=== PATIENT | male | born 1980 | race Caucasian/White ===

== ENCOUNTER 2020-09-17 08:02 | Observation (INO) ==
[~2020-09-17 08:02] MED LIST: Famotidine 20 MG/2 ML VIAL IVP ONE; Pregabalin 75 MG CAPSULE PO ONE
[2020-09-17] MEDS ORDERED: Clindamycin 900 MG/50 ML 900 MG/50 ML IV.SOLN IVPB ONE (08:26)
[2020-09-17] MEDS ORDERED: Ringers Solution, Lactated 1,000 ML IVC SCH ×2 (08:30→13:20)
[2020-09-17] MEDS ORDERED: *HR* Propofol 200 MG/20 ML VIAL IVP ONE (08:45)
[2020-09-17] MEDS ORDERED: *HR* Midazolam HCl 2 MG/2 ML VIAL ONE (08:50)
[2020-09-17] MEDS ORDERED: *HR* Rocuronium Bromide 50 MG/5 ML VIAL ONE (08:51)
[2020-09-17] MEDS ORDERED: Lidocaine -MPF 4% 5 ML AMPUL ONE (08:51)
[2020-09-17] MEDS ORDERED: Lidocaine -MPF 2% 2 ML VIAL ONE (08:51)
[2020-09-17] MEDS ORDERED: Ondansetron 4 MG/2 ML VIAL ONE (08:51)
[2020-09-17] MEDS ORDERED: *HR* Succinylcholine 200 MG/10 ML VIAL IVP ONE (09:00)
[2020-09-17] MEDS ORDERED: *HR* FentaNYL (PF) 100 MCG/2 ML VIAL ONE ×2 (09:01→11:06)
[2020-09-17] MEDS ORDERED: *HR* OxyCODONE Immed Rel 5 MG TABLET PO PRN (09:45)
[2020-09-17] MEDS ORDERED: *HR* HYDROmorphone (PF) 1 MG/ML SYRINGE IVP PRN (09:45)
[2020-09-17] MEDS ORDERED: Acetaminophen IV 1,000 MG/100 ML BAG IVPB ONE (09:45)
[2020-09-17] MEDS ORDERED: *HR* HYDROmorphone 2 MG TABLET PO PRN (09:45)
[2020-09-17] MEDS ORDERED: Bacitracin 50,000 UNIT, Polymyxin B Sulfate 500,000 UNIT, Sodium Chloride IRRigation 1,... IR ONE (09:45)
[2020-09-17] MEDS ORDERED: *HR* Labetalol 20 MG/4 ML SYRINGE IVP PRN (09:45)
[2020-09-17] MEDS ORDERED: EPHEDrine 50 MG/ML VIAL ONE (11:24)
[2020-09-17] MEDS ORDERED: Sugammadex Sodium 200 MG/2 ML VIAL IV ONE (11:54)
[2020-09-17] MEDS ORDERED: Ketorolac 30 MG/ML VIAL ONE (11:55)
[2020-09-17] MEDS ORDERED: Ondansetron 4 MG/2 ML VIAL IVP PRN (13:20)
[2020-09-17] MEDS ORDERED: Naloxone 0.4 MG/ML INJ IVP PRN (13:20)
[2020-09-17] MEDS ORDERED: Famotidine 20 MG TABLET PO PRN (13:20)
[2020-09-17] MEDS ORDERED: *HR* HYDROcodone/Acet 5/325 mg TABLET PO PRN (13:20)
[2020-09-17] MEDS ORDERED: cloNIDine HCL 0.1 MG TABLET PO PRN (13:20)
[2020-09-17] MEDS ORDERED: Acetaminophen 325 MG TABLET PO PRN (13:20)
[2020-09-17] MEDS: *HR* OxyCODONE Immed Rel 5 MG TABLET PO PRN ×2 (15:24→19:47)
[2020-09-17] MEDS: carvediloL 25 MG TABLET PO SCH (17:13)
[2020-09-17] MEDS: Clindamycin 900 MG/50 ML 900 MG/50 ML IV.SOLN IVPB SCH (17:14)
[2020-09-18] MEDS: Clindamycin 900 MG/50 ML 900 MG/50 ML IV.SOLN IVPB SCH (02:09)
[2020-09-18] MEDS: NIFEdipine XL (24 HR) 30 MG TAB.ER.24 PO SCH (07:15)
[2020-09-18] MEDS: Cholecalciferol (D-3) 1,000 UNIT (25MCG) TABLET PO SCH (07:16)
[2020-09-18] MEDS: carvediloL 25 MG TABLET PO SCH ×2 (07:16→18:42)
[2020-09-18] MEDS: *HR* OxyCODONE Immed Rel 5 MG TABLET PO PRN ×4 (07:16→22:15)
[2020-09-18] MEDS: Aspirin Enteric Coated 81 MG Tablet PO SCH (07:16)
[2020-09-18] MEDS: lisinopriL 20 MG TABLET PO SCH (07:16)
[2020-09-18] MEDS: Loratadine 10 MG TABLET PO SCH (07:17)
[2020-09-18] MEDS ORDERED: Celecoxib 200 MG CAPSULE PO SCH (09:00)
[2020-09-18 09:59] LABS: BUN/Creatinine Ratio 13 (6-26); Blood Urea Nitrogen 8 mg/dL (6-20); Carbon Dioxide 25 mEq/L (23-29); Chloride 106 mEq/L (98-107); Glucose 225 mg/dL (70-105); Osmolality,Calculated 293 (280-300); Potassium 3.7 mEq/L (3.5-5.1); Sodium 139 mEq/L (136-145); eGFR For African Americans > 60 (> 60); eGFR For Non-African Americans > 60 (> 60)
[2020-09-18 10:25] LABS: Basophils # 0.1 K/mcL (0.0-0.2); Basophils % 0.4 %; Eosinophils # 0.2 K/mcL (0.0-0.6); Eosinophils % 1.6 %; Hematocrit 37.4 % (37.5-50.1); Hemoglobin 11.9 g/dL (12.9-16.9); Immature Granulocytes % 0.2 % (0-4); Lymphocytes # 2.6 K/mcL (0.6-4.6); Lymphocytes % 19.5 %; Mean Corpuscular HGB Conc 31.8 g/dL (31.6-35.5); Mean Corpuscular Hemoglobin 27.5 pg (28.0-33.3); Mean Corpuscular Volume 86.4 fL (83.0-100.0); Monocytes # 0.8 K/mcL (0.0-1.3); Monocytes % 6.4 %; Neutrophils # 9.4 K/mcL (1.6-8.9); Platelet Count 320 K/mcL (140-400); Red Blood Count 4.33 M/mcL (4.19-5.50); Red Cell Distribution Width 13.4 % (11.5-14.5); Segmented Neutrophils % 71.9 %; White Blood Count 13.1 K/mcL (4.3-11.1)
[2020-09-18] MEDS ORDERED: D5% in Water 1,000 ML IVC PRN (12:37)
[2020-09-18] MEDS ORDERED: *HR* Dextrose 50 % in Water (Vial) 50 ML VIAL IVP PRN (12:37)
[2020-09-18] MEDS ORDERED: Dextrose Gel 15 GM/37.5 ML TUBE PO PRN ×2 (12:37)
[2020-09-18] MEDS ORDERED: diazePAM 2 MG TABLET PO PRN (12:40)
[2020-09-18] MEDS: Acetaminophen 325 MG TABLET PO SCH ×3 (15:55→23:41)
[2020-09-18] MEDS: Ketorolac 15 MG/ML VIAL IVP SCH ×2 (15:55→23:41)
[2020-09-18 18:34] LABS: Bacteria,Urine Few per hpf (None-Few); Bilirubin,Urine Negative (Negative); Blood,Urine Negative (Negative); Calcium Oxalate Crystals,Urine Present; Clarity,Urine Turbid (Clear); Color,Urine Yellow (Yellow); Glucose,Urine (UA) >=1000 mg/dL (Normal); Hyaline Casts,Urine Few per lpf (None Seen); Ketones,Urine Negative (Negative); Leukocyte Esterase,Urine Negative (Negative); Mucus,Urine Moderate per lpf (None-Few); Nitrite,Urine Negative (Negative); Protein,Urine 50 mg/dL (Neg-Trace); Specific Gravity,Urine > 1.030 (1.010-1.025); Squamous Epithelial Cell,Urine Few per hpf (None-Few)
[2020-09-18] MEDS: Insulin LISPRO 300 UNITS/3 ML VIAL SUBQ SCH (18:42)
[2020-09-19] MEDS: Acetaminophen 325 MG TABLET PO SCH ×2 (05:42→13:17)
[2020-09-19] MEDS: *HR* OxyCODONE Immed Rel 5 MG TABLET PO PRN (08:38)
[2020-09-19] MEDS: carvediloL 25 MG TABLET PO SCH (08:39)
[2020-09-19] MEDS: Cholecalciferol (D-3) 1,000 UNIT (25MCG) TABLET PO SCH (08:39)
[2020-09-19] MEDS: NIFEdipine XL (24 HR) 30 MG TAB.ER.24 PO SCH (08:39)
[2020-09-19] MEDS: lisinopriL 20 MG TABLET PO SCH (08:39)
[2020-09-19] MEDS: Aspirin Enteric Coated 81 MG Tablet PO SCH (08:39)
[2020-09-19] MEDS: Loratadine 10 MG TABLET PO SCH (08:39)
[2020-09-19] MEDS: Ketorolac 15 MG/ML VIAL IVP SCH (08:40)
[2020-09-19] MEDS: Insulin LISPRO 300 UNITS/3 ML VIAL SUBQ SCH (08:40)
[2020-09-19 15:25] VITALS: BP 120/78
== END 2020-09-19 17:56 | disposition home health service (06) ==
LOC: 3NENU 08:02 → SAMDAY 08:02 → 3NENU 13:18
PROVIDERS: ADMIT Orthopaedic Surgery Orthopaedic Surgery of the Spine; ATTEND Orthopaedic Surgery Orthopaedic Surgery of the Spine

== ENCOUNTER 2020-10-09 04:02 | Inpatient (IN) ==
[2020-10-09] MEDS ORDERED: Naloxone 0.4 MG/ML INJ IVP PRN (10:30)
[2020-10-09 11:05] LABS: INR 1.2; Prothrombin Time 14.1 Seconds (9.4-12.1)
[2020-10-09] MEDS ORDERED: Acetaminophen 325 MG TABLET PO PRN (11:39)
[2020-10-09] MEDS ORDERED: cloNIDine HCL 0.1 MG TABLET PO PRN (12:09)
[2020-10-09] MEDS ORDERED: 0.9 % Sodium Chloride 1,000 ML IVC ONE (12:20)
[2020-10-09] MEDS ORDERED: *HR* Dextrose 50 % in Water (Vial) 50 ML VIAL IVP PRN (13:36)
[2020-10-09] MEDS ORDERED: D5% in Water 1,000 ML IVC PRN (13:36)
[2020-10-09] MEDS ORDERED: Dextrose Gel 15 GM/37.5 ML TUBE PO PRN ×2 (13:36)
[2020-10-09] MEDS: Piperacillin/Tazobactam 3.375 GM in 0.9 % Sodium Chloride Mini Bag 100 ML IVPB SCH ×2 (14:45→20:19)
[2020-10-09] MEDS: Vancomycin 2,000 MG/520 ML IV.SOLN IVPB SCH (14:45)
[2020-10-09] MEDS ORDERED: *HR* Promethazine 25 MG/ML VIAL IM PRN (15:20)
[2020-10-09] MEDS: Insulin LISPRO 300 UNITS/3 ML VIAL SUBQ SCH ×2 (17:16→20:37)
[2020-10-09] MEDS: Ondansetron 4 MG/2 ML VIAL IVP PRN (18:56)
[2020-10-09] MEDS ORDERED: carvediloL 25 MG TABLET PO SCH (21:00)
[2020-10-09] MEDS: Cefepime HCl 1,000 MG in Water for inj. (sterile) 10 ML IVP SCH (22:42)
[2020-10-09] MEDS: MetroNIDAZOLE 500 MG/100 ML 500 MG/100 ML BAG IVPB SCH (23:27)
[2020-10-10] MEDS: Vancomycin 2,000 MG/520 ML IV.SOLN IVPB SCH ×2 (01:03→11:55)
[2020-10-10] MEDS: Cefepime HCl 1,000 MG in Water for inj. (sterile) 10 ML IVP SCH ×2 (05:33→15:37)
[2020-10-10 05:52] LABS: Basophils # 0.1 K/mcL (0.0-0.2); Basophils % 0.3 %; Eosinophils # 0.1 K/mcL (0.0-0.6); Eosinophils % 0.2 %; Hematocrit 40.2 % (37.5-50.1); Hemoglobin 12.7 g/dL (12.9-16.9); Lymphocytes # 1.5 K/mcL (0.6-4.6); Lymphocytes % 6.9 %; Mean Corpuscular HGB Conc 31.6 g/dL (31.6-35.5); Mean Corpuscular Hemoglobin 27.5 pg (28.0-33.3); Mean Corpuscular Volume 87.2 fL (83.0-100.0); Mean Platelet Volume 9.7 fL (9.4-12.4); Monocytes # 1.4 K/mcL (0.0-1.3); Monocytes % 6.2 %; Neutrophils # 18.9 K/mcL (1.6-8.9); Platelet Count 279 K/mcL (140-400); Red Blood Count 4.61 M/mcL (4.19-5.50); Red Cell Distribution Width 14.1 % (11.5-14.5); Segmented Neutrophils % 85.4 %; White Blood Count 22.2 K/mcL (4.3-11.1)
[2020-10-10 06:15] LABS: BUN/Creatinine Ratio 18 (6-26); Blood Urea Nitrogen 15 mg/dL (6-20); Calcium 8.5 mg/dL (8.6-10.3); Carbon Dioxide 24 mEq/L (23-29); Chloride 105 mEq/L (98-107); Glucose 159 mg/dL (70-105); Osmolality,Calculated 286 (280-300); Potassium 4.1 mEq/L (3.5-5.1); Sodium 136 mEq/L (136-145); eGFR For African Americans > 60 (> 60); eGFR For Non-African Americans > 60 (> 60)
[2020-10-10] MEDS ORDERED: lisinopriL 20 MG TABLET PO SCH (09:00)
[2020-10-10] MEDS ORDERED: NIFEdipine XL (24 HR) 60 MG TAB.ER.24 PO SCH (09:00)
[2020-10-10] MEDS: Insulin LISPRO 300 UNITS/3 ML VIAL SUBQ SCH ×4 (09:52→20:43)
[2020-10-10] MEDS: MetroNIDAZOLE 500 MG/100 ML 500 MG/100 ML BAG IVPB SCH ×2 (10:02→15:46)
[2020-10-10 14:44] LABS: Bilirubin,Urine Negative (Negative); Blood,Urine Negative (Negative); Clarity,Urine Turbid (Clear); Color,Urine Yellow (Yellow); Glucose,Urine (UA) Normal (Normal); Ketones,Urine 10 mg/dL (Negative); Leukocyte Esterase,Urine Negative (Negative); Mucus,Urine Few per lpf (None-Few); Nitrite,Urine Negative (Negative); PH,Urine 5.5 pH Units (5.0-8.0); Protein,Urine 30 mg/dL (Neg-Trace); RBC,Urine 0-3 per hpf (0-3); Specific Gravity,Urine 1.022 (1.010-1.025); Squamous Epithelial Cell,Urine Few per hpf (None-Few)
[2020-10-10] MEDS: Ondansetron 4 MG/2 ML VIAL IVP PRN (15:41)
[2020-10-10] MEDS ORDERED: Vancomycin 1,000 MG VIAL ONE (15:44)
[2020-10-10] MEDS ORDERED: *HR* Rocuronium Bromide 50 MG/5 ML VIAL ONE (16:21)
[2020-10-10] MEDS ORDERED: *HR* FentaNYL (PF) 100 MCG/2 ML VIAL ONE ×2 (16:21→17:15)
[2020-10-10] MEDS ORDERED: Lidocaine -MPF 2% 2 ML VIAL ONE (16:21)
[2020-10-10] MEDS ORDERED: Ondansetron 4 MG/2 ML VIAL ONE (16:21)
[2020-10-10] MEDS ORDERED: Lidocaine -MPF 4% 5 ML AMPUL ONE (16:21)
[2020-10-10] MEDS ORDERED: *HR* Succinylcholine 200 MG/10 ML VIAL IVP ONE (16:21)
[2020-10-10] MEDS ORDERED: *HR* Propofol 200 MG/20 ML VIAL IVP ONE (16:21)
[2020-10-10] MEDS ORDERED: Acetaminophen IV 1,000 MG/100 ML BAG IVPB ONE (17:06)
[2020-10-10] MEDS ORDERED: EPHEDrine 50 MG/ML VIAL ONE (17:34)
[2020-10-10] MEDS ORDERED: *HR* HYDROmorphone PF 0.5 MG/0.5 ML SYRINGE IVP PRN (17:42)
[2020-10-10] MEDS ORDERED: Ondansetron 4 MG/2 ML VIAL IVP PRN ×2 (17:42→22:25)
[2020-10-10] MEDS ORDERED: Naloxone 0.4 MG/ML INJ IVP PRN (22:25)
[2020-10-10] MEDS ORDERED: Acetaminophen 325 MG TABLET PO PRN (22:25)
[2020-10-10] MEDS ORDERED: Ringers Solution, Lactated 1,000 ML IVC SCH (22:25)
[2020-10-10] MEDS ORDERED: Vancomycin 2,000 MG/520 ML IV.SOLN IVPB ONE (22:25)
[2020-10-10] MEDS ORDERED: Loratadine 10 MG TABLET PO PRN (22:25)
[2020-10-11] MEDS ORDERED: Cefepime HCl 2,000 MG in Water for inj. (sterile) 20 ML IVP SCH
[2020-10-11] MEDS: Cefepime HCl 1,000 MG in Water for inj. (sterile) 10 ML IVP SCH ×2 (01:00→08:34)
[2020-10-11] MEDS: MetroNIDAZOLE 500 MG/100 ML 500 MG/100 ML BAG IVPB SCH ×2 (01:01→08:36)
[2020-10-11] MEDS: *HR* OxyCODONE Immed Rel 5 MG TABLET PO PRN ×3 (04:32→19:12)
[2020-10-11 07:29] LABS: Basophils % 0.1 %; Eosinophils % 0.1 %; Hematocrit 36.3 % (37.5-50.1); Hemoglobin 11.4 g/dL (12.9-16.9); Immature Granulocytes % 0.8 % (0-4); Mean Corpuscular HGB Conc 31.4 g/dL (31.6-35.5); Mean Corpuscular Hemoglobin 27.5 pg (28.0-33.3); Mean Corpuscular Volume 87.7 fL (83.0-100.0); Monocytes # 1.1 K/mcL (0.0-1.3); Monocytes % 5.8 %; Neutrophils # 16.9 K/mcL (1.6-8.9); Platelet Count 308 K/mcL (140-400); Red Blood Count 4.14 M/mcL (4.19-5.50); Segmented Neutrophils % 88.2 %; White Blood Count 19.2 K/mcL (4.3-11.1)
[2020-10-11 07:49] LABS: BUN/Creatinine Ratio 19 (6-26); Blood Urea Nitrogen 14 mg/dL (6-20); Calcium 8.7 mg/dL (8.6-10.3); Carbon Dioxide 24 mEq/L (23-29); Chloride 105 mEq/L (98-107); Glucose 251 mg/dL (70-105); Osmolality,Calculated 291 (280-300); Potassium 4.4 mEq/L (3.5-5.1); Sodium 136 mEq/L (136-145); eGFR For African Americans > 60 (> 60); eGFR For Non-African Americans > 60 (> 60)
[2020-10-11] MEDS ORDERED: Vancomycin 1,500 MG/265 ML IV.SOLN IVPB SCH ×2 (08:00)
[2020-10-11] MEDS: Cholecalciferol (D-3) 1,000 UNIT (25MCG) TABLET PO SCH (08:34)
[2020-10-11] MEDS: Famotidine 20 MG TABLET PO SCH (08:34)
[2020-10-11] MEDS: Aspirin Enteric Coated 81 MG Tablet PO SCH (08:40)
[2020-10-11] MEDS: Celecoxib 200 MG CAPSULE PO SCH (08:40)
[2020-10-11] MEDS: Meropenem 1,000 MG in 0.9 % Sodium Chloride Mini Bag 100 ML IVPB SCH (19:11)
[2020-10-11] MEDS: Vancomycin 1,500 MG/265 ML IV.SOLN IVPB SCH (20:53)
[2020-10-11] MEDS: *HR* HYDROcodone/Acet 5/325 mg TABLET PO PRN (20:58)
[2020-10-12] MEDS: *HR* OxyCODONE Immed Rel 5 MG TABLET PO PRN ×5 (00:01→22:47)
[2020-10-12] MEDS: Meropenem 1,000 MG in 0.9 % Sodium Chloride Mini Bag 100 ML IVPB SCH ×3 (00:01→16:58)
[2020-10-12] MEDS: Vancomycin 1,500 MG/265 ML IV.SOLN IVPB SCH (04:16)
[2020-10-12 04:43] LABS: Basophils # 0.1 K/mcL (0.0-0.2); Basophils % 0.6 %; Eosinophils # 0.2 K/mcL (0.0-0.6); Eosinophils % 2.3 %; Hematocrit 32.4 % (37.5-50.1); Hemoglobin 10.3 g/dL (12.9-16.9); Immature Granulocytes % 0.5 % (0-4); Lymphocytes # 2.4 K/mcL (0.6-4.6); Lymphocytes % 23.8 %; Mean Corpuscular HGB Conc 31.8 g/dL (31.6-35.5); Mean Corpuscular Hemoglobin 27.7 pg (28.0-33.3); Mean Corpuscular Volume 87.1 fL (83.0-100.0); Monocytes # 0.7 K/mcL (0.0-1.3); Monocytes % 7.3 %; Neutrophils # 6.7 K/mcL (1.6-8.9); Platelet Count 309 K/mcL (140-400); Red Blood Count 3.72 M/mcL (4.19-5.50); Red Cell Distribution Width 13.9 % (11.5-14.5); Segmented Neutrophils % 65.5 %; White Blood Count 10.2 K/mcL (4.3-11.1)
[2020-10-12 04:58] LABS: BUN/Creatinine Ratio 26 (6-26); Blood Urea Nitrogen 15 mg/dL (6-20); Calcium 8.1 mg/dL (8.6-10.3); Carbon Dioxide 26 mEq/L (23-29); Chloride 109 mEq/L (98-107); Glucose 140 mg/dL (70-105); Osmolality,Calculated 293 (280-300); Sodium 140 mEq/L (136-145); eGFR For African Americans > 60 (> 60); eGFR For Non-African Americans > 60 (> 60)
[2020-10-12] MEDS ORDERED: Bacitracin 50,000 UNIT, Polymyxin B Sulfate 500,000 UNIT, Sodium Chloride IRRigation 1,... IR ONE (06:00)
[2020-10-12] MEDS ORDERED: Ondansetron 4 MG/2 ML VIAL IVP PRN ×3 (07:00→22:22)
[2020-10-12] MEDS: Famotidine 20 MG TABLET PO SCH (08:00)
[2020-10-12] MEDS: Celecoxib 200 MG CAPSULE PO SCH (08:00)
[2020-10-12] MEDS: Cholecalciferol (D-3) 1,000 UNIT (25MCG) TABLET PO SCH (08:00)
[2020-10-12] MEDS: *HR* HYDROcodone/Acet 5/325 mg TABLET PO PRN ×2 (08:00→15:09)
[2020-10-12] MEDS: Aspirin Enteric Coated 81 MG Tablet PO SCH (08:01)
[2020-10-12] MEDS ORDERED: Lidocaine -MPF 1% 5 ML AMPUL INFILT ONE (09:56)
[2020-10-12] MEDS ORDERED: Vancomycin 1,750 MG/517.5 ML IV.SOLN IVPB SCH (12:00)
[2020-10-12] MEDS ORDERED: *HR* FentaNYL (PF) 100 MCG/2 ML VIAL ONE ×2 (18:30→19:49)
[2020-10-12] MEDS ORDERED: Ondansetron 4 MG/2 ML VIAL ONE (18:30)
[2020-10-12] MEDS ORDERED: *HR* Rocuronium Bromide 50 MG/5 ML VIAL ONE (18:30)
[2020-10-12] MEDS ORDERED: *HR* Propofol 200 MG/20 ML VIAL IVP ONE (18:30)
[2020-10-12] MEDS ORDERED: Lidocaine -MPF 4% 5 ML AMPUL ONE (18:30)
[2020-10-12] MEDS ORDERED: Lidocaine -MPF 2% 2 ML VIAL ONE (18:30)
[2020-10-12] MEDS ORDERED: *HR* HYDROmorphone PF 0.5 MG/0.5 ML SYRINGE IVP PRN (19:05)
[2020-10-12] MEDS ORDERED: *HR* Meperidine 25 MG/ML SYRINGE IVP PRN (19:05)
[2020-10-12] MEDS ORDERED: Vancomycin 1,000 MG VIAL ONE (19:28)
[2020-10-12] MEDS ORDERED: EPHEDrine 50 MG/ML VIAL ONE (19:43)
[2020-10-12] MEDS ORDERED: Naloxone 0.4 MG/ML INJ IVP PRN (22:22)
[2020-10-12] MEDS: Ringers Solution, Lactated 1,000 ML IVC SCH (22:47)
[2020-10-13] MEDS ORDERED: Vancomycin 2,000 MG/520 ML IV.SOLN IVPB ONE (02:00)
[2020-10-13] MEDS: *HR* OxyCODONE Immed Rel 5 MG TABLET PO PRN ×4 (02:53→19:48)
[2020-10-13] MEDS ORDERED: Dextrose Gel 15 GM/37.5 ML TUBE PO PRN ×2 (08:09→08:10)
[2020-10-13] MEDS ORDERED: *HR* Dextrose 50 % in Water (Vial) 50 ML VIAL IVP PRN (08:10)
[2020-10-13] MEDS ORDERED: Loratadine 10 MG TABLET PO PRN (08:12)
[2020-10-13] MEDS: Aspirin Enteric Coated 81 MG Tablet PO SCH (08:32)
[2020-10-13] MEDS: Famotidine 20 MG TABLET PO SCH (08:32)
[2020-10-13] MEDS: Cholecalciferol (D-3) 1,000 UNIT (25MCG) TABLET PO SCH (08:32)
[2020-10-13] MEDS: Celecoxib 200 MG CAPSULE PO SCH (08:32)
[2020-10-13] MEDS: Ringers Solution, Lactated 1,000 ML IVC SCH (08:32)
[2020-10-13] MEDS: Vancomycin 1,750 MG/517.5 ML IV.SOLN IVPB SCH ×2 (08:47→16:56)
[2020-10-13 10:27] LABS: Basophils # 0.1 K/mcL (0.0-0.2); Basophils % 0.5 %; Eosinophils # 0.1 K/mcL (0.0-0.6); Eosinophils % 1.3 %; Hematocrit 31.7 % (37.5-50.1); Immature Granulocytes % 0.7 % (0-4); Lymphocytes # 1.9 K/mcL (0.6-4.6); Lymphocytes % 18.5 %; Mean Corpuscular HGB Conc 31.5 g/dL (31.6-35.5); Mean Corpuscular Hemoglobin 27.4 pg (28.0-33.3); Mean Corpuscular Volume 86.8 fL (83.0-100.0); Monocytes # 0.6 K/mcL (0.0-1.3); Monocytes % 6.2 %; Neutrophils # 7.3 K/mcL (1.6-8.9); Platelet Count 324 K/mcL (140-400); Red Blood Count 3.65 M/mcL (4.19-5.50); Red Cell Distribution Width 13.6 % (11.5-14.5); Segmented Neutrophils % 72.8 %; White Blood Count 10.1 K/mcL (4.3-11.1)
[2020-10-13 10:44] LABS: BUN/Creatinine Ratio 18 (6-26); Blood Urea Nitrogen 11 mg/dL (6-20); Calcium 8.2 mg/dL (8.6-10.3); Carbon Dioxide 30 mEq/L (23-29); Chloride 104 mEq/L (98-107); Glucose 143 mg/dL (70-105); Osmolality,Calculated 290 (280-300); Sodium 139 mEq/L (136-145); eGFR For African Americans > 60 (> 60); eGFR For Non-African Americans > 60 (> 60)
[2020-10-13] MEDS: Insulin LISPRO 300 UNITS/3 ML VIAL SUBQ SCH ×3 (13:02→19:50)
[2020-10-13] MEDS ORDERED: Meropenem 1,000 MG in 0.9 % Sodium Chloride Mini Bag 100 ML IVPB SCH (16:00)
[2020-10-13] MEDS: *HR* HYDROcodone/Acet 5/325 mg TABLET PO PRN ×2 (16:55→22:57)
[2020-10-14] MEDS: *HR* OxyCODONE Immed Rel 5 MG TABLET PO PRN ×3 (00:08→19:54)
[2020-10-14 00:34] LABS: Basophils # 0.1 K/mcL (0.0-0.2); Basophils % 0.7 %; Eosinophils # 0.5 K/mcL (0.0-0.6); Eosinophils % 5.2 %; Hematocrit 31.8 % (37.5-50.1); Hemoglobin 10.2 g/dL (12.9-16.9); Immature Granulocytes % 1.8 % (0-4); Lymphocytes # 2.8 K/mcL (0.6-4.6); Lymphocytes % 28.3 %; Mean Corpuscular HGB Conc 32.1 g/dL (31.6-35.5); Mean Corpuscular Hemoglobin 27.6 pg (28.0-33.3); Mean Corpuscular Volume 85.9 fL (83.0-100.0); Mean Platelet Volume 9.8 fL (9.4-12.4); Monocytes # 0.6 K/mcL (0.0-1.3); Monocytes % 6.2 %; Neutrophils # 5.7 K/mcL (1.6-8.9); Platelet Count 314 K/mcL (140-400); Red Cell Distribution Width 13.4 % (11.5-14.5); Segmented Neutrophils % 57.8 %; White Blood Count 9.8 K/mcL (4.3-11.1)
[2020-10-14 00:52] LABS: BUN/Creatinine Ratio 18 (6-26); Blood Urea Nitrogen 12 mg/dL (6-20); Calcium 8.4 mg/dL (8.6-10.3); Carbon Dioxide 29 mEq/L (23-29); Chloride 105 mEq/L (98-107); Glucose 158 mg/dL (70-105); Osmolality,Calculated 291 (280-300); Potassium 3.6 mEq/L (3.5-5.1); Sodium 139 mEq/L (136-145); eGFR For African Americans > 60 (> 60); eGFR For Non-African Americans > 60 (> 60)
[2020-10-14] MEDS: Vancomycin 1,750 MG/517.5 ML IV.SOLN IVPB SCH ×3 (01:28→16:36)
[2020-10-14] MEDS: Cholecalciferol (D-3) 1,000 UNIT (25MCG) TABLET PO SCH (09:18)
[2020-10-14] MEDS: Aspirin Enteric Coated 81 MG Tablet PO SCH (09:19)
[2020-10-14] MEDS: Celecoxib 200 MG CAPSULE PO SCH (09:19)
[2020-10-14] MEDS: Famotidine 20 MG TABLET PO SCH (09:19)
[2020-10-14] MEDS: Insulin LISPRO 300 UNITS/3 ML VIAL SUBQ SCH ×4 (09:25→19:55)
[2020-10-14] MEDS: *HR* HYDROcodone/Acet 5/325 mg TABLET PO PRN (23:32)
[2020-10-15] MEDS: *HR* OxyCODONE Immed Rel 5 MG TABLET PO PRN ×4 (01:07→23:24)
[2020-10-15] MEDS: Vancomycin 1,750 MG/517.5 ML IV.SOLN IVPB SCH ×3 (01:08→20:58)
[2020-10-15 03:39] LABS: Basophils # 0.1 K/mcL (0.0-0.2); Basophils % 0.8 %; Eosinophils # 0.9 K/mcL (0.0-0.6); Eosinophils % 8.6 %; Hematocrit 31.1 % (37.5-50.1); Hemoglobin 9.9 g/dL (12.9-16.9); Immature Granulocytes % 3.1 % (0-4); Lymphocytes # 2.4 K/mcL (0.6-4.6); Lymphocytes % 21.8 %; Mean Corpuscular HGB Conc 31.8 g/dL (31.6-35.5); Mean Corpuscular Hemoglobin 27.4 pg (28.0-33.3); Mean Corpuscular Volume 86.1 fL (83.0-100.0); Mean Platelet Volume 9.5 fL (9.4-12.4); Monocytes # 0.7 K/mcL (0.0-1.3); Monocytes % 6.1 %; Neutrophils # 6.4 K/mcL (1.6-8.9); Platelet Count 310 K/mcL (140-400); Red Blood Count 3.61 M/mcL (4.19-5.50); Red Cell Distribution Width 13.4 % (11.5-14.5); Segmented Neutrophils % 59.6 %; White Blood Count 10.8 K/mcL (4.3-11.1)
[2020-10-15 04:02] LABS: BUN/Creatinine Ratio 16 (6-26); Blood Urea Nitrogen 9 mg/dL (6-20); Calcium 8.1 mg/dL (8.6-10.3); Carbon Dioxide 30 mEq/L (23-29); Chloride 104 mEq/L (98-107); Glucose 123 mg/dL (70-105); Osmolality,Calculated 290 (280-300); Potassium 3.9 mEq/L (3.5-5.1); Sodium 140 mEq/L (136-145); eGFR For African Americans > 60 (> 60); eGFR For Non-African Americans > 60 (> 60)
[2020-10-15] MEDS: Insulin LISPRO 300 UNITS/3 ML VIAL SUBQ SCH ×4 (09:17→20:59)
[2020-10-15] MEDS: Famotidine 20 MG TABLET PO SCH (09:39)
[2020-10-15] MEDS: Celecoxib 200 MG CAPSULE PO SCH (09:39)
[2020-10-15] MEDS: Aspirin Enteric Coated 81 MG Tablet PO SCH (09:39)
[2020-10-15] MEDS: Cholecalciferol (D-3) 1,000 UNIT (25MCG) TABLET PO SCH (09:40)
[2020-10-16] MEDS: *HR* HYDROcodone/Acet 5/325 mg TABLET PO PRN (01:14)
[2020-10-16 03:32] LABS: Basophils # 0.1 K/mcL (0.0-0.2); Basophils % 0.7 %; Hemoglobin 10.8 g/dL (12.9-16.9); Immature Granulocytes % 2.9 % (0-4); Lymphocytes # 2.7 K/mcL (0.6-4.6); Lymphocytes % 22.9 %; Mean Corpuscular HGB Conc 31.8 g/dL (31.6-35.5); Mean Corpuscular Hemoglobin 27.6 pg (28.0-33.3); Mean Platelet Volume 9.5 fL (9.4-12.4); Monocytes # 0.7 K/mcL (0.0-1.3); Monocytes % 5.7 %; Neutrophils # 7.1 K/mcL (1.6-8.9); Platelet Count 365 K/mcL (140-400); Red Blood Count 3.91 M/mcL (4.19-5.50); Red Cell Distribution Width 13.4 % (11.5-14.5); Segmented Neutrophils % 59.8 %; White Blood Count 11.8 K/mcL (4.3-11.1)
[2020-10-16 03:49] LABS: BUN/Creatinine Ratio 16 (6-26); Blood Urea Nitrogen 9 mg/dL (6-20); Calcium 8.3 mg/dL (8.6-10.3); Carbon Dioxide 29 mEq/L (23-29); Chloride 104 mEq/L (98-107); Glucose 127 mg/dL (70-105); Osmolality,Calculated 286 (280-300); Potassium 3.7 mEq/L (3.5-5.1); Sodium 138 mEq/L (136-145); eGFR For African Americans > 60 (> 60); eGFR For Non-African Americans > 60 (> 60)
[2020-10-16] MEDS: Vancomycin 1,750 MG/517.5 ML IV.SOLN IVPB SCH ×3 (04:36→20:47)
[2020-10-16] MEDS: *HR* OxyCODONE Immed Rel 5 MG TABLET PO PRN ×3 (06:30→17:44)
[2020-10-16] MEDS: Aspirin Enteric Coated 81 MG Tablet PO SCH (08:01)
[2020-10-16] MEDS: Famotidine 20 MG TABLET PO SCH (08:02)
[2020-10-16] MEDS: Acetaminophen 325 MG TABLET PO PRN ×2 (08:02→20:25)
[2020-10-16] MEDS: Celecoxib 200 MG CAPSULE PO SCH (08:02)
[2020-10-16] MEDS: Cholecalciferol (D-3) 1,000 UNIT (25MCG) TABLET PO SCH (08:02)
[2020-10-16] MEDS: Insulin LISPRO 300 UNITS/3 ML VIAL SUBQ SCH ×4 (08:20→20:26)
[2020-10-17] MEDS: *HR* OxyCODONE Immed Rel 5 MG TABLET PO PRN ×2 (04:04→10:35)
[2020-10-17] MEDS: Vancomycin 1,750 MG/517.5 ML IV.SOLN IVPB SCH (04:45)
[2020-10-17 05:08] LABS: Basophils # 0.1 K/mcL (0.0-0.2); Basophils % 0.6 %; Eosinophils # 0.7 K/mcL (0.0-0.6); Eosinophils % 7.3 %; Hematocrit 32.5 % (37.5-50.1); Hemoglobin 10.3 g/dL (12.9-16.9); Immature Granulocytes % 2.3 % (0-4); Lymphocytes # 2.2 K/mcL (0.6-4.6); Lymphocytes % 21.7 %; Mean Corpuscular HGB Conc 31.7 g/dL (31.6-35.5); Mean Corpuscular Volume 85.3 fL (83.0-100.0); Mean Platelet Volume 9.4 fL (9.4-12.4); Monocytes # 0.6 K/mcL (0.0-1.3); Monocytes % 5.6 %; Neutrophils # 6.2 K/mcL (1.6-8.9); Platelet Count 347 K/mcL (140-400); Red Blood Count 3.81 M/mcL (4.19-5.50); Red Cell Distribution Width 13.6 % (11.5-14.5); Segmented Neutrophils % 62.5 %; White Blood Count 9.9 K/mcL (4.3-11.1)
[2020-10-17 05:31] LABS: BUN/Creatinine Ratio 14 (6-26); Blood Urea Nitrogen 9 mg/dL (6-20); Calcium 8.5 mg/dL (8.6-10.3); Carbon Dioxide 28 mEq/L (23-29); Chloride 103 mEq/L (98-107); Glucose 140 mg/dL (70-105); Osmolality,Calculated 285 (280-300); Potassium 3.9 mEq/L (3.5-5.1); Sodium 137 mEq/L (136-145); eGFR For African Americans > 60 (> 60); eGFR For Non-African Americans > 60 (> 60)
[2020-10-17] MEDS: Insulin LISPRO 300 UNITS/3 ML VIAL SUBQ SCH (07:30)
[2020-10-17 07:34] VITALS: BP 155/82
[2020-10-17] MEDS: Famotidine 20 MG TABLET PO SCH (08:09)
[2020-10-17] MEDS: Cholecalciferol (D-3) 1,000 UNIT (25MCG) TABLET PO SCH (08:09)
[2020-10-17] MEDS: Aspirin Enteric Coated 81 MG Tablet PO SCH (08:09)
[2020-10-17] MEDS: Celecoxib 200 MG CAPSULE PO SCH (08:10)
== END 2020-10-17 13:05 | disposition home health service (06) | DRG 856 ==
LOC: 3NENU → SUATTDRO 09:25
PROVIDERS: ADMIT Family Medicine; ATTEND Internal Medicine

== ENCOUNTER 2020-10-19 10:13 | Inpatient (IN) ==
[2020-10-19] MEDS ORDERED: 0.9 % Sodium Chloride 1,000 ML IVC ONE (11:33)
[2020-10-19] MEDS ORDERED: Metoclopramide 10 MG/2 ML VIAL IVP ONE (11:34)
[2020-10-19 12:10] LABS: Basophils # 0.1 K/mcL (0.0-0.2); Basophils % 0.7 %; Eosinophils # 0.6 K/mcL (0.0-0.6); Eosinophils % 4.5 %; Hematocrit 32.6 % (37.5-50.1); Hemoglobin 10.4 g/dL (12.9-16.9); Immature Granulocytes % 0.9 % (0-4); Lymphocytes # 2.3 K/mcL (0.6-4.6); Lymphocytes % 17.2 %; Mean Corpuscular HGB Conc 31.9 g/dL (31.6-35.5); Mean Corpuscular Hemoglobin 26.9 pg (28.0-33.3); Mean Corpuscular Volume 84.2 fL (83.0-100.0); Mean Platelet Volume 9.5 fL (9.4-12.4); Monocytes # 0.8 K/mcL (0.0-1.3); Monocytes % 5.8 %; Neutrophils # 9.4 K/mcL (1.6-8.9); Platelet Count 402 K/mcL (140-400); Red Blood Count 3.87 M/mcL (4.19-5.50); Red Cell Distribution Width 13.4 % (11.5-14.5); Segmented Neutrophils % 70.9 %; White Blood Count 13.2 K/mcL (4.3-11.1)
[2020-10-19 12:16] LABS: INR 1.1; Prothrombin Time 12.6 Seconds (9.4-12.1)
[2020-10-19] MEDS ORDERED: Isovue-370 500 ML BOTTLE IVP ONE (12:18)
[2020-10-19 12:19] LABS: Activated Partial Thrombo Time 33.2 Seconds (26.0-36.0)
[2020-10-19 12:28] LABS: Alanine Aminotransferase 21 Units/L (7-52); Albumin 3.5 g/dL (3.5-5.7); Albumin/Globulin Ratio 1.1 (1.1-2.2); Alkaline Phosphatase 77 Units/L (34-104); Aspartate Amino Transferase 14 Units/L (13-39); BUN/Creatinine Ratio 13 (6-26); Bilirubin,Indirect 0.2 mg/dL (0.0-1.0); Bilirubin,Total 0.2 mg/dL (0.3-1.0); Blood Urea Nitrogen 9 mg/dL (6-20); Calcium 8.5 mg/dL (8.6-10.3); Carbon Dioxide 27 mEq/L (23-29); Chloride 105 mEq/L (98-107); Globulin 3.1 g/dL (2.4-3.5); Glucose 112 mg/dL (70-105); Osmolality,Calculated 285 (280-300); Phosphorous 2.4 mg/dL (2.7-4.5); Potassium 3.8 mEq/L (3.5-5.1); Sodium 138 mEq/L (136-145); Total Protein 6.6 g/dL (6.4-8.9); Troponin I < 0.03 ng/mL (< 0.04); eGFR For African Americans > 60 (> 60); eGFR For Non-African Americans > 60 (> 60)
[2020-10-19] MEDS ORDERED: Naloxone 0.4 MG/ML INJ IVP PRN (15:02)
[2020-10-19] MEDS ORDERED: Loratadine 10 MG TABLET PO PRN (15:09)
[2020-10-19] MEDS: Vancomycin 1,750 MG/517.5 ML IV.SOLN IVPB SCH (17:45)
[2020-10-19] MEDS: carvediloL 25 MG TABLET PO SCH (17:46)
[2020-10-19] MEDS: *HR* Heparin 5,000 UNIT/ML VIAL SQ SCH (17:47)
[2020-10-19] MEDS: Gabapentin 300 MG CAPSULE PO SCH (20:16)
[2020-10-19] MEDS: Acetaminophen 325 MG TABLET PO PRN (20:16)
[2020-10-20] MEDS: Acetaminophen 325 MG TABLET PO PRN (04:19)
[2020-10-20] MEDS: *HR* Heparin 5,000 UNIT/ML VIAL SQ SCH ×2 (06:47→17:41)
[2020-10-20 06:51] LABS: Basophils # 0.1 K/mcL (0.0-0.2); Basophils % 0.5 %; Eosinophils # 0.5 K/mcL (0.0-0.6); Eosinophils % 4.7 %; Hematocrit 31.9 % (37.5-50.1); Hemoglobin 10.1 g/dL (12.9-16.9); Immature Granulocytes % 0.8 % (0-4); Lymphocytes % 20.1 %; Mean Corpuscular HGB Conc 31.7 g/dL (31.6-35.5); Mean Corpuscular Hemoglobin 27.4 pg (28.0-33.3); Mean Corpuscular Volume 86.4 fL (83.0-100.0); Mean Platelet Volume 9.7 fL (9.4-12.4); Monocytes # 0.6 K/mcL (0.0-1.3); Monocytes % 6.1 %; Neutrophils # 6.8 K/mcL (1.6-8.9); Platelet Count 344 K/mcL (140-400); Red Blood Count 3.69 M/mcL (4.19-5.50); Red Cell Distribution Width 13.4 % (11.5-14.5); Segmented Neutrophils % 67.8 %; White Blood Count 10.1 K/mcL (4.3-11.1)
[2020-10-20] MEDS: NIFEdipine XL (24 HR) 60 MG TAB.ER.24 PO SCH (07:06)
[2020-10-20] MEDS: carvediloL 25 MG TABLET PO SCH ×2 (07:06→17:41)
[2020-10-20] MEDS: lisinopriL 20 MG TABLET PO SCH (07:06)
[2020-10-20 07:15] LABS: BUN/Creatinine Ratio 10 (6-26); Blood Urea Nitrogen 6 mg/dL (6-20); Calcium 8.3 mg/dL (8.6-10.3); Carbon Dioxide 27 mEq/L (23-29); Chloride 104 mEq/L (98-107); Glucose 160 mg/dL (70-105); Osmolality,Calculated 287 (280-300); Potassium 3.7 mEq/L (3.5-5.1); Sodium 138 mEq/L (136-145); eGFR For African Americans > 60 (> 60); eGFR For Non-African Americans > 60 (> 60)
[2020-10-20] MEDS: Vancomycin 1,750 MG/517.5 ML IV.SOLN IVPB SCH ×4 (08:55→23:33)
[2020-10-20] MEDS: Celecoxib 200 MG CAPSULE PO SCH (08:56)
[2020-10-20] MEDS: *HR* HYDROcodone/Acet 5/325 mg TABLET PO PRN ×2 (08:56→23:35)
[2020-10-20] MEDS: Famotidine 20 MG TABLET PO SCH (08:56)
[2020-10-20] MEDS: Aspirin Enteric Coated 81 MG Tablet PO SCH (08:56)
[2020-10-20] MEDS: Gabapentin 300 MG CAPSULE PO SCH ×2 (08:56→23:33)
[2020-10-20] MEDS ORDERED: *HR* Alteplase (Cathflo) 2 MG VIAL IVP ONE (12:45)
[2020-10-20] MEDS: Ondansetron 4 MG/2 ML VIAL IVP PRN (17:46)
[2020-10-21 04:37] LABS: Basophils # 0.1 K/mcL (0.0-0.2); Basophils % 0.9 %; Eosinophils # 0.5 K/mcL (0.0-0.6); Eosinophils % 5.1 %; Hematocrit 32.5 % (37.5-50.1); Hemoglobin 9.9 g/dL (12.9-16.9); Immature Granulocytes % 0.5 % (0-4); Lymphocytes # 2.3 K/mcL (0.6-4.6); Lymphocytes % 25.2 %; Mean Corpuscular HGB Conc 30.5 g/dL (31.6-35.5); Mean Corpuscular Hemoglobin 26.4 pg (28.0-33.3); Mean Corpuscular Volume 86.7 fL (83.0-100.0); Mean Platelet Volume 9.6 fL (9.4-12.4); Monocytes # 0.7 K/mcL (0.0-1.3); Monocytes % 7.8 %; Neutrophils # 5.6 K/mcL (1.6-8.9); Platelet Count 341 K/mcL (140-400); Red Blood Count 3.75 M/mcL (4.19-5.50); Red Cell Distribution Width 13.5 % (11.5-14.5); Segmented Neutrophils % 60.5 %; White Blood Count 9.3 K/mcL (4.3-11.1)
[2020-10-21] MEDS: *HR* Heparin 5,000 UNIT/ML VIAL SQ SCH ×2 (05:01→16:15)
[2020-10-21 05:05] LABS: BUN/Creatinine Ratio 11 (6-26); Blood Urea Nitrogen 7 mg/dL (6-20); Calcium 8.3 mg/dL (8.6-10.3); Carbon Dioxide 30 mEq/L (23-29); Chloride 105 mEq/L (98-107); Glucose 113 mg/dL (70-105); Osmolality,Calculated 287 (280-300); Potassium 3.8 mEq/L (3.5-5.1); Sodium 139 mEq/L (136-145); eGFR For African Americans > 60 (> 60); eGFR For Non-African Americans > 60 (> 60)
[2020-10-21] MEDS: *HR* HYDROcodone/Acet 5/325 mg TABLET PO PRN (08:14)
[2020-10-21] MEDS: lisinopriL 20 MG TABLET PO SCH (08:15)
[2020-10-21] MEDS: carvediloL 25 MG TABLET PO SCH ×2 (08:15→16:15)
[2020-10-21] MEDS: Vancomycin 1,500 MG/265 ML IV.SOLN IVPB SCH ×2 (08:15→16:15)
[2020-10-21] MEDS: Gabapentin 300 MG CAPSULE PO SCH ×2 (08:15→22:26)
[2020-10-21] MEDS: Famotidine 20 MG TABLET PO SCH (08:15)
[2020-10-21] MEDS: Celecoxib 200 MG CAPSULE PO SCH (08:15)
[2020-10-21] MEDS: Aspirin Enteric Coated 81 MG Tablet PO SCH (08:15)
[2020-10-21] MEDS: NIFEdipine XL (24 HR) 60 MG TAB.ER.24 PO SCH (08:20)
[2020-10-21] MEDS ORDERED: *HR* Promethazine 25 MG/ML VIAL IM ONE (11:48)
[2020-10-21] MEDS ORDERED: Ketorolac 30 MG/ML VIAL IVP ONE (11:48)
[2020-10-21] MEDS: Acetaminophen/Aspirin/Caffeine TABLET PO PRN (13:22)
[2020-10-21 14:22] LABS: Influenza A PCR Negative (Negative); Influenza B PCR Negative (Negative); Resp. Syncytial Virus PCR Negative (Negative)
[2020-10-21 14:23] LABS: SARS-CoV-2 by PCR (In House) Negative (Negative)
[2020-10-22] MEDS: Vancomycin 1,500 MG/265 ML IV.SOLN IVPB SCH ×2 (00:06→09:01)
[2020-10-22] MEDS: *HR* HYDROcodone/Acet 5/325 mg TABLET PO PRN (00:06)
[2020-10-22] MEDS: Ondansetron 4 MG/2 ML VIAL IVP PRN ×2 (00:21→15:21)
[2020-10-22] MEDS: *HR* Heparin 5,000 UNIT/ML VIAL SQ SCH ×2 (05:20→16:44)
[2020-10-22 05:48] LABS: Basophils # 0.1 K/mcL (0.0-0.2); Basophils % 0.8 %; Eosinophils # 0.4 K/mcL (0.0-0.6); Hematocrit 32.6 % (37.5-50.1); Hemoglobin 10.1 g/dL (12.9-16.9); Immature Granulocytes % 0.7 % (0-4); Lymphocytes # 2.4 K/mcL (0.6-4.6); Lymphocytes % 24.7 %; Mean Corpuscular Hemoglobin 27.3 pg (28.0-33.3); Mean Corpuscular Volume 88.1 fL (83.0-100.0); Mean Platelet Volume 9.6 fL (9.4-12.4); Monocytes # 0.7 K/mcL (0.0-1.3); Monocytes % 7.4 %; Neutrophils # 6.2 K/mcL (1.6-8.9); Platelet Count 346 K/mcL (140-400); Red Cell Distribution Width 13.3 % (11.5-14.5); Segmented Neutrophils % 62.4 %; White Blood Count 9.9 K/mcL (4.3-11.1)
[2020-10-22 06:06] LABS: BUN/Creatinine Ratio 17 (6-26); Blood Urea Nitrogen 15 mg/dL (6-20); Calcium 8.3 mg/dL (8.6-10.3); Carbon Dioxide 29 mEq/L (23-29); Chloride 105 mEq/L (98-107); Glucose 121 mg/dL (70-105); Osmolality,Calculated 288 (280-300); Potassium 3.9 mEq/L (3.5-5.1); Sodium 138 mEq/L (136-145); eGFR For African Americans > 60 (> 60); eGFR For Non-African Americans > 60 (> 60)
[2020-10-22 07:14] LABS: Vancomycin,Trough 18 mcg/mL (5-10)
[2020-10-22] MEDS: Aspirin Enteric Coated 81 MG Tablet PO SCH (07:51)
[2020-10-22] MEDS: Gabapentin 300 MG CAPSULE PO SCH ×2 (09:01→21:21)
[2020-10-22] MEDS: Famotidine 20 MG TABLET PO SCH (09:02)
[2020-10-22] MEDS: carvediloL 25 MG TABLET PO SCH ×2 (09:02→16:43)
[2020-10-22] MEDS: Celecoxib 200 MG CAPSULE PO SCH (09:02)
[2020-10-22] MEDS: NIFEdipine XL (24 HR) 60 MG TAB.ER.24 PO SCH (09:02)
[2020-10-22] MEDS: lisinopriL 20 MG TABLET PO SCH (09:03)
[2020-10-22 11:22] LABS: C-Reactive Protein 27 mg/L (Less than 10)
[2020-10-22] MEDS: Acetaminophen 325 MG TABLET PO PRN (16:43)
[2020-10-22] MEDS: Vancomycin 1,250 MG/262.5 ML IV.SOLN IVPB SCH (16:44)
[2020-10-22 20:09] LABS: Basophils # 0.1 K/mcL (0.0-0.2); Basophils % 0.7 %; Eosinophils # 0.4 K/mcL (0.0-0.6); Eosinophils % 3.3 %; Hematocrit 31.6 % (37.5-50.1); Hemoglobin 9.8 g/dL (12.9-16.9); Immature Granulocytes % 0.6 % (0-4); Lymphocytes # 1.7 K/mcL (0.6-4.6); Lymphocytes % 16.1 %; Mean Corpuscular Hemoglobin 26.9 pg (28.0-33.3); Mean Corpuscular Volume 86.8 fL (83.0-100.0); Mean Platelet Volume 9.9 fL (9.4-12.4); Monocytes # 0.8 K/mcL (0.0-1.3); Monocytes % 7.7 %; Neutrophils # 7.8 K/mcL (1.6-8.9); Platelet Count 378 K/mcL (140-400); Red Blood Count 3.64 M/mcL (4.19-5.50); Red Cell Distribution Width 13.3 % (11.5-14.5); Segmented Neutrophils % 71.6 %; White Blood Count 10.8 K/mcL (4.3-11.1)
[2020-10-23] MEDS: Vancomycin 1,250 MG/262.5 ML IV.SOLN IVPB SCH ×2 (00:29→08:12)
[2020-10-23] MEDS: Ondansetron 4 MG/2 ML VIAL IVP PRN ×2 (00:32→14:05)
[2020-10-23 02:38] LABS: Basophils # 0.1 K/mcL (0.0-0.2); Basophils % 0.7 %; Eosinophils # 0.4 K/mcL (0.0-0.6); Eosinophils % 3.6 %; Hematocrit 32.6 % (37.5-50.1); Hemoglobin 10.3 g/dL (12.9-16.9); Immature Granulocytes % 0.5 % (0-4); Lymphocytes # 2.3 K/mcL (0.6-4.6); Lymphocytes % 21.4 %; Mean Corpuscular HGB Conc 31.6 g/dL (31.6-35.5); Mean Corpuscular Hemoglobin 27.1 pg (28.0-33.3); Mean Corpuscular Volume 85.8 fL (83.0-100.0); Mean Platelet Volume 9.5 fL (9.4-12.4); Monocytes # 0.9 K/mcL (0.0-1.3); Monocytes % 8.7 %; Platelet Count 390 K/mcL (140-400); Red Cell Distribution Width 13.5 % (11.5-14.5); Segmented Neutrophils % 65.1 %; White Blood Count 10.7 K/mcL (4.3-11.1)
[2020-10-23 02:58] LABS: BUN/Creatinine Ratio 16 (6-26); Blood Urea Nitrogen 15 mg/dL (6-20); Calcium 8.4 mg/dL (8.6-10.3); Carbon Dioxide 29 mEq/L (23-29); Chloride 104 mEq/L (98-107); Glucose 138 mg/dL (70-105); Osmolality,Calculated 289 (280-300); Potassium 3.9 mEq/L (3.5-5.1); Sodium 138 mEq/L (136-145); eGFR For African Americans > 60 (> 60); eGFR For Non-African Americans > 60 (> 60)
[2020-10-23] MEDS: *HR* Heparin 5,000 UNIT/ML VIAL SQ SCH ×2 (05:28→16:57)
[2020-10-23] MEDS: carvediloL 25 MG TABLET PO SCH ×2 (08:11→16:59)
[2020-10-23] MEDS: Famotidine 20 MG TABLET PO SCH (08:11)
[2020-10-23] MEDS: lisinopriL 20 MG TABLET PO SCH (08:12)
[2020-10-23] MEDS: Celecoxib 200 MG CAPSULE PO SCH (08:12)
[2020-10-23] MEDS: Aspirin Enteric Coated 81 MG Tablet PO SCH (08:12)
[2020-10-23] MEDS: Gabapentin 300 MG CAPSULE PO SCH ×2 (08:29→21:10)
[2020-10-23] MEDS: NIFEdipine XL (24 HR) 60 MG TAB.ER.24 PO SCH (08:29)
[2020-10-23] MEDS: *HR* HYDROcodone/Acet 5/325 mg TABLET PO PRN (14:04)
[2020-10-23] MEDS: Acetaminophen 325 MG TABLET PO PRN (14:31)
[2020-10-23] MEDS: Acetaminophen/Aspirin/Caffeine TABLET PO PRN (16:09)
[2020-10-24] MEDS: *HR* HYDROcodone/Acet 5/325 mg TABLET PO PRN ×3 (05:02→20:06)
[2020-10-24 05:26] LABS: Basophils # 0.1 K/mcL (0.0-0.2); Basophils % 0.9 %; Eosinophils # 0.3 K/mcL (0.0-0.6); Eosinophils % 2.8 %; Hematocrit 33.3 % (37.5-50.1); Hemoglobin 10.3 g/dL (12.9-16.9); Immature Granulocytes % 0.5 % (0-4); Lymphocytes % 21.2 %; Mean Corpuscular HGB Conc 30.9 g/dL (31.6-35.5); Mean Corpuscular Hemoglobin 27.2 pg (28.0-33.3); Mean Corpuscular Volume 88.1 fL (83.0-100.0); Mean Platelet Volume 9.7 fL (9.4-12.4); Monocytes % 10.7 %; Platelet Count 369 K/mcL (140-400); Red Blood Count 3.78 M/mcL (4.19-5.50); Red Cell Distribution Width 13.5 % (11.5-14.5); Segmented Neutrophils % 63.9 %; White Blood Count 9.4 K/mcL (4.3-11.1)
[2020-10-24 05:48] LABS: BUN/Creatinine Ratio 19 (6-26); Blood Urea Nitrogen 20 mg/dL (6-20); Calcium 8.6 mg/dL (8.6-10.3); Carbon Dioxide 27 mEq/L (23-29); Chloride 104 mEq/L (98-107); Glucose 137 mg/dL (70-105); Osmolality,Calculated 291 (280-300); Potassium 3.8 mEq/L (3.5-5.1); Sodium 138 mEq/L (136-145); eGFR For African Americans > 60 (> 60); eGFR For Non-African Americans > 60 (> 60)
[2020-10-24] MEDS ORDERED: Vancomycin 1,500 MG/265 ML IV.SOLN IVPB SCH (08:00)
[2020-10-24] MEDS: carvediloL 25 MG TABLET PO SCH ×2 (08:09→16:33)
[2020-10-24] MEDS: lisinopriL 20 MG TABLET PO SCH (08:09)
[2020-10-24] MEDS: Gabapentin 300 MG CAPSULE PO SCH (08:09)
[2020-10-24] MEDS: Celecoxib 200 MG CAPSULE PO SCH (08:09)
[2020-10-24] MEDS: NIFEdipine XL (24 HR) 60 MG TAB.ER.24 PO SCH (08:09)
[2020-10-24] MEDS: Famotidine 20 MG TABLET PO SCH (08:10)
[2020-10-24] MEDS ORDERED: Sennosides/Docusate Sodium TABLET PO SCH (09:00)
[2020-10-24] MEDS ORDERED: Cholecalciferol (D-3) 1,000 UNIT (25MCG) TABLET PO SCH (09:00)
[2020-10-24] MEDS: Aspirin Enteric Coated 81 MG Tablet PO SCH (09:13)
[2020-10-24] MEDS ORDERED: *HR* Labetalol 20 MG/4 ML SYRINGE IVP PRN (16:03)
[2020-10-24] MEDS ORDERED: Ondansetron 4 MG/2 ML VIAL IVP PRN ×2 (16:03→18:50)
[2020-10-24] MEDS ORDERED: *HR* HYDROcodone/Acet 5/325 mg TABLET PO PRN (16:03)
[2020-10-24] MEDS ORDERED: Promethazine 6.25 MG in Water for inj. (sterile) 20 ML IVPB PRN (16:03)
[2020-10-24] MEDS ORDERED: Vancomycin 1,000 MG VIAL ONE (16:26)
[2020-10-24] MEDS ORDERED: Lidocaine -MPF 4% 5 ML AMPUL ONE (16:31)
[2020-10-24] MEDS ORDERED: *HR* FentaNYL (PF) 100 MCG/2 ML VIAL ONE (16:31)
[2020-10-24] MEDS ORDERED: Ondansetron 4 MG/2 ML VIAL ONE (16:31)
[2020-10-24] MEDS ORDERED: Lidocaine -MPF 2% 2 ML VIAL ONE (16:31)
[2020-10-24] MEDS ORDERED: *HR* Propofol 200 MG/20 ML VIAL IVP ONE (16:31)
[2020-10-24] MEDS ORDERED: *HR* Succinylcholine 200 MG/10 ML VIAL IVP ONE (16:31)
[2020-10-24] MEDS ORDERED: EPHEDrine 50 MG/ML VIAL ONE (17:24)
[2020-10-24] MEDS: *HR* HYDROmorphone PF 0.5 MG/0.5 ML SYRINGE IVP PRN ×2 (18:13→18:20)
[2020-10-24] MEDS ORDERED: Naloxone 0.4 MG/ML INJ IVP PRN (18:50)
[2020-10-25] MEDS: CeFAZolin 2 GM/120 ML BAG IVPB SCH ×2 (00:18→07:37)
[2020-10-25] MEDS: *HR* HYDROcodone/Acet 5/325 mg TABLET PO PRN ×2 (03:14→21:08)
[2020-10-25 06:11] LABS: Basophils # 0.1 K/mcL (0.0-0.2); Eosinophils # 0.3 K/mcL (0.0-0.6); Eosinophils % 3.6 %; Hematocrit 32.4 % (37.5-50.1); Hemoglobin 9.8 g/dL (12.9-16.9); Immature Granulocytes % 0.3 % (0-4); Lymphocytes % 21.8 %; Mean Corpuscular HGB Conc 30.2 g/dL (31.6-35.5); Mean Corpuscular Hemoglobin 26.5 pg (28.0-33.3); Mean Corpuscular Volume 87.6 fL (83.0-100.0); Mean Platelet Volume 9.9 fL (9.4-12.4); Monocytes # 0.9 K/mcL (0.0-1.3); Monocytes % 9.8 %; Neutrophils # 5.7 K/mcL (1.6-8.9); Platelet Count 297 K/mcL (140-400); Red Cell Distribution Width 13.5 % (11.5-14.5); Segmented Neutrophils % 63.5 %
[2020-10-25] MEDS: Vancomycin 1,500 MG/265 ML IV.SOLN IVPB SCH ×2 (06:14→18:23)
[2020-10-25] MEDS: Ringers Solution, Lactated 1,000 ML IVC SCH (07:49)
[2020-10-25] MEDS ORDERED: *HR* OxyCODONE Immed Rel 5 MG TABLET PO PRN (09:30)
[2020-10-25 14:22] LABS: eGFR For African Americans > 60 (> 60); eGFR For Non-African Americans > 60 (> 60)
[2020-10-25] MEDS: *HR* OxyCODONE Immed Rel 5 MG TABLET PO PRN ×3 (14:54→23:16)
[2020-10-25] MEDS ORDERED: *HR* Dextrose 50 % in Water (Vial) 50 ML VIAL IVP PRN (22:26)
[2020-10-25] MEDS ORDERED: D5% in Water 1,000 ML IVC PRN (22:26)
[2020-10-25] MEDS ORDERED: Dextrose Gel 15 GM/37.5 ML TUBE PO PRN ×2 (22:26)
[2020-10-26] MEDS: *HR* OxyCODONE Immed Rel 5 MG TABLET PO PRN ×5 (04:12→22:23)
[2020-10-26 04:59] LABS: Basophils # 0.1 K/mcL (0.0-0.2); Basophils % 0.8 %; Eosinophils # 0.2 K/mcL (0.0-0.6); Hematocrit 31.4 % (37.5-50.1); Hemoglobin 9.9 g/dL (12.9-16.9); Immature Granulocytes % 0.4 % (0-4); Lymphocytes # 1.9 K/mcL (0.6-4.6); Lymphocytes % 25.2 %; Mean Corpuscular HGB Conc 31.5 g/dL (31.6-35.5); Mean Corpuscular Hemoglobin 26.9 pg (28.0-33.3); Mean Corpuscular Volume 85.3 fL (83.0-100.0); Mean Platelet Volume 9.7 fL (9.4-12.4); Monocytes # 0.7 K/mcL (0.0-1.3); Monocytes % 9.8 %; Neutrophils # 4.5 K/mcL (1.6-8.9); Platelet Count 299 K/mcL (140-400); Red Blood Count 3.68 M/mcL (4.19-5.50); Red Cell Distribution Width 13.6 % (11.5-14.5); Segmented Neutrophils % 60.8 %; White Blood Count 7.3 K/mcL (4.3-11.1)
[2020-10-26 05:08] LABS: BUN/Creatinine Ratio 19 (6-26); Blood Urea Nitrogen 18 mg/dL (6-20); Calcium 8.5 mg/dL (8.6-10.3); Carbon Dioxide 30 mEq/L (23-29); Chloride 102 mEq/L (98-107); Glucose 119 mg/dL (70-105); Osmolality,Calculated 285 (280-300); Potassium 4.6 mEq/L (3.5-5.1); Sodium 136 mEq/L (136-145); eGFR For African Americans > 60 (> 60); eGFR For Non-African Americans > 60 (> 60)
[2020-10-26] MEDS: Vancomycin 1,500 MG/265 ML IV.SOLN IVPB SCH ×2 (05:39→18:47)
[2020-10-26] MEDS: Insulin LISPRO 300 UNITS/3 ML VIAL SUBQ SCH ×4 (09:25→20:43)
[2020-10-26] MEDS: Ondansetron ODT 4 MG TAB.RAPDIS SL PRN (09:45)
[2020-10-26] MEDS: *HR* HYDROcodone/Acet 5/325 mg TABLET PO PRN (20:52)
[2020-10-27] MEDS: Acetaminophen 325 MG TABLET PO PRN (00:18)
[2020-10-27] MEDS: cloNIDine HCL 0.1 MG TABLET PO PRN (00:18)
[2020-10-27] MEDS: Vancomycin 1,500 MG/265 ML IV.SOLN IVPB SCH ×2 (05:22→19:10)
[2020-10-27 05:49] LABS: Basophils # 0.1 K/mcL (0.0-0.2); Basophils % 1.2 %; Eosinophils # 0.3 K/mcL (0.0-0.6); Eosinophils % 3.3 %; Hematocrit 30.9 % (37.5-50.1); Hemoglobin 9.8 g/dL (12.9-16.9); Immature Granulocytes % 0.1 % (0-4); Lymphocytes # 1.7 K/mcL (0.6-4.6); Lymphocytes % 22.5 %; Mean Corpuscular HGB Conc 31.7 g/dL (31.6-35.5); Mean Corpuscular Hemoglobin 26.9 pg (28.0-33.3); Mean Corpuscular Volume 84.9 fL (83.0-100.0); Mean Platelet Volume 9.6 fL (9.4-12.4); Monocytes # 0.7 K/mcL (0.0-1.3); Monocytes % 9.9 %; Neutrophils # 4.7 K/mcL (1.6-8.9); Platelet Count 368 K/mcL (140-400); Red Blood Count 3.64 M/mcL (4.19-5.50); Red Cell Distribution Width 13.3 % (11.5-14.5); White Blood Count 7.5 K/mcL (4.3-11.1)
[2020-10-27 06:08] LABS: BUN/Creatinine Ratio 20 (6-26); Blood Urea Nitrogen 20 mg/dL (6-20); Calcium 8.8 mg/dL (8.6-10.3); Carbon Dioxide 28 mEq/L (23-29); Chloride 102 mEq/L (98-107); Glucose 138 mg/dL (70-105); Osmolality,Calculated 287 (280-300); Potassium 4.4 mEq/L (3.5-5.1); Sodium 136 mEq/L (136-145); eGFR For African Americans > 60 (> 60); eGFR For Non-African Americans > 60 (> 60)
[2020-10-27] MEDS: Insulin LISPRO 300 UNITS/3 ML VIAL SUBQ SCH ×4 (08:05→21:22)
[2020-10-27] MEDS: *HR* OxyCODONE Immed Rel 5 MG TABLET PO PRN ×4 (08:08→21:17)
[2020-10-27] MEDS: Ondansetron ODT 4 MG TAB.RAPDIS SL PRN (12:20)
[2020-10-28] MEDS: *HR* OxyCODONE Immed Rel 5 MG TABLET PO PRN ×5 (01:44→23:01)
[2020-10-28] MEDS: Acetaminophen 325 MG TABLET PO PRN (01:44)
[2020-10-28 05:12] LABS: Basophils # 0.1 K/mcL (0.0-0.2); Eosinophils # 0.2 K/mcL (0.0-0.6); Eosinophils % 2.2 %; Hematocrit 32.9 % (37.5-50.1); Hemoglobin 10.3 g/dL (12.9-16.9); Immature Granulocytes % 0.5 % (0-4); Lymphocytes # 1.4 K/mcL (0.6-4.6); Lymphocytes % 17.3 %; Mean Corpuscular HGB Conc 31.3 g/dL (31.6-35.5); Mean Corpuscular Hemoglobin 27.5 pg (28.0-33.3); Mean Corpuscular Volume 87.7 fL (83.0-100.0); Mean Platelet Volume 9.8 fL (9.4-12.4); Monocytes # 0.7 K/mcL (0.0-1.3); Monocytes % 8.2 %; Neutrophils # 5.9 K/mcL (1.6-8.9); Platelet Count 397 K/mcL (140-400); Red Blood Count 3.75 M/mcL (4.19-5.50); Red Cell Distribution Width 13.3 % (11.5-14.5); Segmented Neutrophils % 70.8 %; White Blood Count 8.3 K/mcL (4.3-11.1)
[2020-10-28 05:29] LABS: BUN/Creatinine Ratio 20 (6-26); Blood Urea Nitrogen 19 mg/dL (6-20); Calcium 8.8 mg/dL (8.6-10.3); Carbon Dioxide 28 mEq/L (23-29); Chloride 103 mEq/L (98-107); Glucose 136 mg/dL (70-105); Osmolality,Calculated 288 (280-300); Potassium 4.3 mEq/L (3.5-5.1); Sodium 137 mEq/L (136-145); eGFR For African Americans > 60 (> 60); eGFR For Non-African Americans > 60 (> 60)
[2020-10-28] MEDS: Vancomycin 1,500 MG/265 ML IV.SOLN IVPB SCH ×2 (06:15→17:14)
[2020-10-28] MEDS: Acetaminophen/Aspirin/Caffeine TABLET PO PRN (06:15)
[2020-10-28] MEDS: Insulin LISPRO 300 UNITS/3 ML VIAL SUBQ SCH ×4 (08:46→20:11)
[2020-10-28] MEDS: carvediloL 25 MG TABLET PO SCH (17:14)
[2020-10-29] MEDS ORDERED: Ketorolac 30 MG/ML VIAL IVP ONE (02:00)
[2020-10-29 05:25] LABS: Basophils # 0.1 K/mcL (0.0-0.2); Basophils % 1.1 %; Eosinophils # 0.2 K/mcL (0.0-0.6); Hematocrit 32.7 % (37.5-50.1); Immature Granulocytes % 0.2 % (0-4); Lymphocytes # 1.6 K/mcL (0.6-4.6); Mean Corpuscular HGB Conc 30.6 g/dL (31.6-35.5); Mean Corpuscular Hemoglobin 26.6 pg (28.0-33.3); Mean Platelet Volume 9.7 fL (9.4-12.4); Monocytes # 0.7 K/mcL (0.0-1.3); Monocytes % 7.8 %; Neutrophils # 5.9 K/mcL (1.6-8.9); Platelet Count 405 K/mcL (140-400); Red Blood Count 3.76 M/mcL (4.19-5.50); Red Cell Distribution Width 13.2 % (11.5-14.5); Segmented Neutrophils % 69.9 %; White Blood Count 8.4 K/mcL (4.3-11.1)
[2020-10-29 05:46] LABS: BUN/Creatinine Ratio 20 (6-26); Blood Urea Nitrogen 20 mg/dL (6-20); Calcium 8.8 mg/dL (8.6-10.3); Carbon Dioxide 29 mEq/L (23-29); Chloride 104 mEq/L (98-107); Glucose 127 mg/dL (70-105); Osmolality,Calculated 292 (280-300); Potassium 4.1 mEq/L (3.5-5.1); Sodium 139 mEq/L (136-145); eGFR For African Americans > 60 (> 60); eGFR For Non-African Americans > 60 (> 60)
[2020-10-29] MEDS: Acetaminophen/Aspirin/Caffeine TABLET PO PRN (05:57)
[2020-10-29 06:07] LABS: Vancomycin,Trough 13 mcg/mL (5-10)
[2020-10-29] MEDS: Vancomycin 1,500 MG/265 ML IV.SOLN IVPB SCH (06:22)
[2020-10-29] MEDS: *HR* OxyCODONE Immed Rel 5 MG TABLET PO PRN ×3 (06:23→21:40)
[2020-10-29] MEDS: Insulin LISPRO 300 UNITS/3 ML VIAL SUBQ SCH ×4 (08:56→21:03)
[2020-10-29] MEDS ORDERED: lisinopriL 20 MG TABLET PO SCH (09:15)
[2020-10-29] MEDS: carvediloL 25 MG TABLET PO SCH ×2 (09:26→21:02)
[2020-10-29] MEDS: Ringers Solution, Lactated 1,000 ML IVC SCH ×2 (09:34→23:13)
[2020-10-29] MEDS: cloNIDine HCL 0.1 MG TABLET PO PRN (15:52)
[2020-10-29 16:46] LABS: Adenovirus Not Detected (Not Detect); Bordetella Pertussis Not Detected (Not Detect); Chlamydophila pneumoniae Not Detected (Not Detect); Coronavirus 229E Not Detected (Not Detect); Coronavirus HKU1 Not Detected (Not Detect); Coronavirus NL63 Not Detected (Not Detect); Coronavirus OC43 Not Detected (Not Detect); Human Metapneumovirus Not Detected (Not Detect); Human Rhinovirus/Enterovirus Not Detected (Not Detect); Influenza A Subtype 2009 H1 Not Detected (Not Detect); Influenza B Not Detected (Not Detect); Mycoplasma pneumoniae Not Detected (Not Detect); Parainfluenza Virus 1 Not Detected (Not Detect); Parainfluenza Virus 2 Not Detected (Not Detect); Parainfluenza Virus 3 Not Detected (Not Detect); Parainfluenza Virus 4 Not Detected (Not Detect); Respiratory Syncytial Virus Not Detected (Not Detect); SARS-CoV-2 Not Detected (Not Detect)
[2020-10-29] MEDS ORDERED: Vancomycin 1,500 MG/265 ML IV.SOLN IVPB SCH (18:00)
[2020-10-29] MEDS ORDERED: Vancomycin 1,750 MG/517.5 ML IV.SOLN IVPB SCH (18:00)
[2020-10-29] MEDS ORDERED: Vancomycin 1,000 MG VIAL ONE (18:12)
[2020-10-29] MEDS ORDERED: *HR* FentaNYL (PF) 100 MCG/2 ML VIAL ONE ×2 (18:22→19:09)
[2020-10-29] MEDS ORDERED: *HR* Succinylcholine 200 MG/10 ML VIAL IVP ONE (18:24)
[2020-10-29] MEDS ORDERED: Ondansetron 4 MG/2 ML VIAL ONE (19:10)
[2020-10-29] MEDS ORDERED: Dexamethasone 4 MG/ML VIAL ONE (19:10)
[2020-10-29] MEDS ORDERED: Ondansetron 4 MG/2 ML VIAL IVP PRN ×2 (19:27→21:05)
[2020-10-29] MEDS ORDERED: *HR* HYDROcodone/Acet 5/325 mg TABLET PO PRN (19:27)
[2020-10-29] MEDS ORDERED: *HR* Labetalol 20 MG/4 ML SYRINGE IVP PRN (19:27)
[2020-10-29] MEDS ORDERED: Promethazine 6.25 MG in Water for inj. (sterile) 20 ML IVPB PRN (19:27)
[2020-10-29] MEDS: *HR* HYDROmorphone PF 0.5 MG/0.5 ML SYRINGE IVP PRN ×2 (20:07→20:22)
[2020-10-29] MEDS ORDERED: Acetaminophen 325 MG TABLET PO PRN (21:05)
[2020-10-29] MEDS ORDERED: Naloxone 0.4 MG/ML INJ IVP PRN (21:05)
[2020-10-30] MEDS: *HR* OxyCODONE Immed Rel 5 MG TABLET PO PRN ×3 (01:59→13:19)
[2020-10-30] MEDS ORDERED: Vancomycin 1,500 MG/265 ML IV.SOLN IVPB SCH (07:00)
[2020-10-30] MEDS: carvediloL 25 MG TABLET PO SCH ×2 (07:58→17:12)
[2020-10-30] MEDS: Ringers Solution, Lactated 1,000 ML IVC SCH (08:26)
[2020-10-30] MEDS ORDERED: NIFEdipine XL (24 HR) 60 MG TAB.ER.24 PO SCH (09:00)
[2020-10-30] MEDS: *HR* HYDROcodone/Acet 5/325 mg TABLET PO PRN ×2 (09:59→17:11)
[2020-10-30] MEDS ORDERED: Acetaminophen/Aspirin/Caffeine TABLET PO ONE (11:40)
[2020-10-30 17:02] VITALS: BP 147/83
== END 2020-10-30 17:27 | disposition home health service (06) | DRG 856 ==
LOC: EMEROOARM 10:13 → 3NENU 15:27 → SUATTDRO 15:27 → 3NENU 15:47
PROVIDERS: ADMIT Internal Medicine; ATTEND Student in an Organized Health Care Education/Training Program

== ENCOUNTER 2020-12-14 16:51 | Observation (INO) ==
[2020-12-14 18:06] LABS: Bilirubin,Urine Negative (Negative); Blood,Urine Large (Negative); Clarity,Urine Clear (Clear); Color,Urine Yellow (Yellow); Glucose,Urine (UA) >=1000 mg/dL (Normal); Ketones,Urine Trace mg/dL (Negative); Leukocyte Esterase,Urine Large (Negative); Mucus,Urine Few per lpf (None-Few); Nitrite,Urine Negative (Negative); Protein,Urine 30 mg/dL (Neg-Trace); RBC,Urine 0-3 per hpf (0-3); Specific Gravity,Urine > 1.030 (1.010-1.025); Squamous Epithelial Cell,Urine Few per hpf (None-Few); WBC,Urine TNTC per hpf (0-3)
[2020-12-14] MEDS ORDERED: Gadolinium Contrast Agent (WT Based) IV PRN (18:38)
[2020-12-14] MEDS ORDERED: Morphine Sulfate 2 MG/ML SYRINGE IVP ONE (18:40)
[2020-12-14 19:47] LABS: Alanine Aminotransferase 32 Units/L (7-52); Albumin 4.3 g/dL (3.5-5.7); Albumin/Globulin Ratio 1.4 (1.1-2.2); Alkaline Phosphatase 99 Units/L (34-104); Aspartate Amino Transferase 19 Units/L (13-39); BUN/Creatinine Ratio 15 (6-26); Basophils # 0.1 K/mcL (0.0-0.2); Basophils % 0.6 %; Bilirubin,Total 0.3 mg/dL (0.3-1.0); Blood Urea Nitrogen 14 mg/dL (6-20); C-Reactive Protein 72 mg/L (Less than 10); Calcium 9.5 mg/dL (8.6-10.3); Carbon Dioxide 25 mEq/L (23-29); Chloride 104 mEq/L (98-107); Eosinophils # 0.1 K/mcL (0.0-0.6); Eosinophils % 0.4 %; Glucose 157 mg/dL (70-105); Hematocrit 36.6 % (37.5-50.1); Hemoglobin 11.5 g/dL (12.9-16.9); Immature Granulocytes % 0.4 % (0-4); Lymphocytes # 1.7 K/mcL (0.6-4.6); Lymphocytes % 8.3 %; Mean Corpuscular HGB Conc 31.4 g/dL (31.6-35.5); Mean Corpuscular Hemoglobin 25.6 pg (28.0-33.3); Mean Corpuscular Volume 81.3 fL (83.0-100.0); Mean Platelet Volume 9.7 fL (9.4-12.4); Monocytes # 1.1 K/mcL (0.0-1.3); Monocytes % 5.5 %; Neutrophils # 17.3 K/mcL (1.6-8.9); Osmolality,Calculated 288 (280-300); Platelet Count 416 K/mcL (140-400); Potassium 3.4 mEq/L (3.5-5.1); Red Cell Distribution Width 12.8 % (11.5-14.5); Segmented Neutrophils % 84.8 %; Sodium 137 mEq/L (136-145); Total Protein 7.3 g/dL (6.4-8.9); eGFR For African Americans > 60 (> 60); eGFR For Non-African Americans > 60 (> 60)
[2020-12-14 19:48] LABS: White Blood Count 20.4 K/mcL (4.3-11.1)
[2020-12-14] MEDS ORDERED: Piperacillin/Tazobactam 3.375 GM in Water for inj. (sterile) 20 ML IVP ONE (20:33)
[2020-12-14] MEDS ORDERED: 0.9 % Sodium Chloride 1,000 ML IVC ONE (20:47)
[2020-12-14] MEDS ORDERED: *HR* FentaNYL (PF) 100 MCG/2 ML VIAL IVP ONE (21:24)
[2020-12-14] MEDS ORDERED: Ertapenem 1,000 MG in 0.9 % Sodium Chloride Mini Bag 100 ML IVPB STA (22:02)
[2020-12-14] MEDS ORDERED: Naloxone 0.4 MG/ML INJ IVP PRN (23:28)
[2020-12-14] MEDS ORDERED: Acetaminophen 325 MG TABLET PO PRN (23:36)
[2020-12-14] MEDS ORDERED: D5% in Water 1,000 ML IVC PRN (23:41)
[2020-12-14] MEDS ORDERED: *HR* Dextrose 50 % in Water (Vial) 50 ML VIAL IVP PRN (23:41)
[2020-12-14] MEDS ORDERED: Dextrose Gel 15 GM/37.5 ML TUBE PO PRN ×2 (23:41)
[2020-12-15] MEDS: Melatonin 3 MG TABLET PO PRN ×2 (01:09→21:24)
[2020-12-15] MEDS: *HR* Heparin 5,000 UNIT/ML VIAL SQ SCH ×2 (05:09→18:11)
[2020-12-15 05:22] LABS: Basophils # 0.1 K/mcL (0.0-0.2); Basophils % 0.6 %; Eosinophils # 0.1 K/mcL (0.0-0.6); Eosinophils % 0.6 %; Hematocrit 34.7 % (37.5-50.1); Hemoglobin 10.8 g/dL (12.9-16.9); Immature Granulocytes % 0.5 % (0-4); Lymphocytes # 2.3 K/mcL (0.6-4.6); Mean Corpuscular HGB Conc 31.1 g/dL (31.6-35.5); Mean Corpuscular Hemoglobin 25.7 pg (28.0-33.3); Mean Corpuscular Volume 82.6 fL (83.0-100.0); Mean Platelet Volume 9.7 fL (9.4-12.4); Monocytes # 1.2 K/mcL (0.0-1.3); Monocytes % 6.6 %; Neutrophils # 13.8 K/mcL (1.6-8.9); Platelet Count 347 K/mcL (140-400); Red Cell Distribution Width 13.2 % (11.5-14.5); Segmented Neutrophils % 78.7 %; White Blood Count 17.5 K/mcL (4.3-11.1)
[2020-12-15 05:34] LABS: INR 1.1; Prothrombin Time 12.7 Seconds (9.4-12.1)
[2020-12-15 05:46] LABS: Alanine Aminotransferase 25 Units/L (7-52); Albumin 3.9 g/dL (3.5-5.7); Albumin/Globulin Ratio 1.5 (1.1-2.2); Alkaline Phosphatase 82 Units/L (34-104); Aspartate Amino Transferase 14 Units/L (13-39); BUN/Creatinine Ratio 13 (6-26); Bilirubin,Total 0.4 mg/dL (0.3-1.0); Blood Urea Nitrogen 11 mg/dL (6-20); Calcium 8.8 mg/dL (8.6-10.3); Carbon Dioxide 25 mEq/L (23-29); Chloride 105 mEq/L (98-107); Globulin 2.6 g/dL (2.4-3.5); Glucose 133 mg/dL (70-105); Osmolality,Calculated 283 (280-300); Phosphorous 3.4 mg/dL (2.7-4.5); Potassium 3.5 mEq/L (3.5-5.1); Sodium 136 mEq/L (136-145); Total Protein 6.5 g/dL (6.4-8.9); eGFR For African Americans > 60 (> 60); eGFR For Non-African Americans > 60 (> 60)
[2020-12-15] MEDS: Insulin LISPRO 300 UNITS/3 ML VIAL SUBQ SCH ×4 (08:27→21:17)
[2020-12-15] MEDS: Ertapenem 1,000 MG in 0.9 % Sodium Chloride Mini Bag 100 ML IVPB SCH (08:34)
[2020-12-15] MEDS: Ondansetron 4 MG/2 ML VIAL IVP PRN (09:36)
[2020-12-15] MEDS: Gabapentin 300 MG CAPSULE PO SCH (18:11)
[2020-12-16] MEDS: *HR* Heparin 5,000 UNIT/ML VIAL SQ SCH ×2 (05:24→17:09)
[2020-12-16 07:21] LABS: Basophils # 0.1 K/mcL (0.0-0.2); Basophils % 0.6 %; Eosinophils # 0.2 K/mcL (0.0-0.6); Hematocrit 35.1 % (37.5-50.1); Hemoglobin 10.6 g/dL (12.9-16.9); Immature Granulocytes % 0.4 % (0-4); Lymphocytes # 1.5 K/mcL (0.6-4.6); Lymphocytes % 13.5 %; Mean Corpuscular HGB Conc 30.2 g/dL (31.6-35.5); Mean Corpuscular Hemoglobin 24.8 pg (28.0-33.3); Mean Corpuscular Volume 82.2 fL (83.0-100.0); Mean Platelet Volume 9.6 fL (9.4-12.4); Monocytes # 0.7 K/mcL (0.0-1.3); Monocytes % 6.2 %; Neutrophils # 8.7 K/mcL (1.6-8.9); Platelet Count 332 K/mcL (140-400); Red Blood Count 4.27 M/mcL (4.19-5.50); Red Cell Distribution Width 13.1 % (11.5-14.5); Segmented Neutrophils % 77.3 %; White Blood Count 11.2 K/mcL (4.3-11.1)
[2020-12-16 07:45] LABS: % Iron Saturation 6 % (20-55); BUN/Creatinine Ratio 13 (6-26); Blood Urea Nitrogen 10 mg/dL (6-20); Calcium 8.9 mg/dL (8.6-10.3); Carbon Dioxide 27 mEq/L (23-29); Chloride 102 mEq/L (98-107); Glucose 137 mg/dL (70-105); Iron 18 mcg/dL (65-175); Osmolality,Calculated 283 (280-300); Phosphorous 3.2 mg/dL (2.7-4.5); Potassium 3.8 mEq/L (3.5-5.1); Sodium 136 mEq/L (136-145); Transferrin 228 mg/dL (203-362); eGFR For African Americans > 60 (> 60); eGFR For Non-African Americans > 60 (> 60)
[2020-12-16 08:00] LABS: Ferritin 61 ng/mL (20-250)
[2020-12-16 08:06] LABS: Folate 11.9 ng/mL (3.0-16.0)
[2020-12-16] MEDS: Insulin LISPRO 300 UNITS/3 ML VIAL SUBQ SCH ×4 (08:47→20:29)
[2020-12-16] MEDS: Aspirin Enteric Coated 81 MG Tablet PO SCH (08:50)
[2020-12-16] MEDS: lisinopriL 20 MG TABLET PO SCH (08:51)
[2020-12-16] MEDS: Multivit/Ca/Min/Fe/FA 1 TAB TABLET PO SCH (08:51)
[2020-12-16] MEDS: Ertapenem 1,000 MG in 0.9 % Sodium Chloride Mini Bag 100 ML IVPB SCH (08:51)
[2020-12-16] MEDS: NIFEdipine XL (24 HR) 60 MG TAB.ER.24 PO SCH (08:51)
[2020-12-16] MEDS ORDERED: Iron Sucrose Complex 400 MG in 0.9 % Sodium Chloride 250 ML IVPB ONE (10:15)
[2020-12-16] MEDS: Gabapentin 300 MG CAPSULE PO SCH (17:09)
[2020-12-16] MEDS: Ondansetron 4 MG/2 ML VIAL IVP PRN (17:59)
[2020-12-16] MEDS: Melatonin 3 MG TABLET PO PRN (20:04)
[2020-12-17] MEDS: *HR* Heparin 5,000 UNIT/ML VIAL SQ SCH (05:33)
[2020-12-17 06:15] LABS: Basophils # 0.1 K/mcL (0.0-0.2); Basophils % 0.7 %; Eosinophils # 0.3 K/mcL (0.0-0.6); Eosinophils % 3.1 %; Hematocrit 36.3 % (37.5-50.1); Hemoglobin 11.2 g/dL (12.9-16.9); Immature Granulocytes % 0.4 % (0-4); Lymphocytes # 1.2 K/mcL (0.6-4.6); Lymphocytes % 14.7 %; Mean Corpuscular HGB Conc 30.9 g/dL (31.6-35.5); Mean Corpuscular Hemoglobin 25.7 pg (28.0-33.3); Mean Corpuscular Volume 83.3 fL (83.0-100.0); Mean Platelet Volume 10.2 fL (9.4-12.4); Monocytes # 0.6 K/mcL (0.0-1.3); Monocytes % 7.1 %; Platelet Count 373 K/mcL (140-400); Red Blood Count 4.36 M/mcL (4.19-5.50); Red Cell Distribution Width 12.9 % (11.5-14.5); White Blood Count 8.1 K/mcL (4.3-11.1)
[2020-12-17 07:02] LABS: BUN/Creatinine Ratio 13 (6-26); Blood Urea Nitrogen 11 mg/dL (6-20); Calcium 8.9 mg/dL (8.6-10.3); Carbon Dioxide 30 mEq/L (23-29); Chloride 103 mEq/L (98-107); Glucose 128 mg/dL (70-105); Magnesium 2.2 mg/dL (1.6-2.6); Osmolality,Calculated 289 (280-300); Phosphorous 3.4 mg/dL (2.7-4.5); Potassium 3.8 mEq/L (3.5-5.1); Sodium 139 mEq/L (136-145); eGFR For African Americans > 60 (> 60); eGFR For Non-African Americans > 60 (> 60)
[2020-12-17 07:31] VITALS: BP 133/86
[2020-12-17] MEDS: Insulin LISPRO 300 UNITS/3 ML VIAL SUBQ SCH (07:37)
[2020-12-17] MEDS: NIFEdipine XL (24 HR) 60 MG TAB.ER.24 PO SCH (08:19)
[2020-12-17] MEDS: lisinopriL 20 MG TABLET PO SCH (08:19)
[2020-12-17] MEDS: Multivit/Ca/Min/Fe/FA 1 TAB TABLET PO SCH (08:19)
[2020-12-17] MEDS: Aspirin Enteric Coated 81 MG Tablet PO SCH (08:19)
[2020-12-17 08:24] LABS: Estimated Average Glucose 166 mg/dl; Hemoglobin A1C 7.4 %
[2020-12-17] MEDS ORDERED: levoFLOXacin 750 MG TABLET PO SCH (09:00)
== END 2020-12-17 11:28 | disposition home or self-care (01) ==
LOC: 3ANU 16:51 → EMEROOARM 16:51 → SUATTDRO 21:49 → 3ANU 23:04
PROVIDERS: ADMIT Family Medicine; ATTEND Internal Medicine

== ENCOUNTER 2021-05-21 21:01 | Inpatient (IN) ==
[2021-05-22] MEDS ORDERED: Melatonin 3 MG TABLET PO PRN (02:34)
[2021-05-22] MEDS ORDERED: Naloxone 0.4 MG/ML INJ IVP PRN (02:34)
[2021-05-22] MEDS ORDERED: D5% in Water 1,000 ML IVC PRN (03:16)
[2021-05-22] MEDS ORDERED: *HR* Dextrose 50 % in Water (Syg) 50 ML SYRINGE IVP PRN (03:16)
[2021-05-22] MEDS ORDERED: Dextrose Gel 15 GM/37.5 ML TUBE PO PRN ×2 (03:16)
[2021-05-22] MEDS: Ipratropium 1 PUFF INHALER IH SCH ×4 (04:08→21:47)
[2021-05-22] MEDS ORDERED: Remdesivir 200 MG in 0.9 % Sodium Chloride 100 ML IVPB ONE (05:00)
[2021-05-22] MEDS ORDERED: *HR* Enoxaparin 40 MG/0.4 ML SYRINGE SQ SCH (06:00)
[2021-05-22 06:14] LABS: Magnesium 2.2 mg/dL (1.6-2.6); Phosphorous 2.1 mg/dL (2.7-4.5)
[2021-05-22] MEDS ORDERED: Ondansetron ODT 4 MG TAB.RAPDIS PO PRN (08:17)
[2021-05-22 08:44] LABS: Hematocrit 37.9 % (37.5-50.1); Hemoglobin 11.9 g/dL (12.9-16.9); Immature Granulocytes % 0.5 % (0-4); Lymphocytes # 0.5 K/mcL (0.6-4.6); Lymphocytes % 11.7 %; Mean Corpuscular HGB Conc 31.4 g/dL (31.6-35.5); Mean Corpuscular Hemoglobin 25.4 pg (28.0-33.3); Mean Platelet Volume 10.3 fL (9.4-12.4); Monocytes # 0.2 K/mcL (0.0-1.3); Monocytes % 4.2 %; Neutrophils # 3.6 K/mcL (1.6-8.9); Platelet Count 245 K/mcL (140-400); Red Blood Count 4.68 M/mcL (4.19-5.50); Red Cell Distribution Width 14.9 % (11.5-14.5); Segmented Neutrophils % 83.6 %; White Blood Count 4.3 K/mcL (4.3-11.1)
[2021-05-22] MEDS ORDERED: carvediloL 25 MG TABLET PO SCH (09:00)
[2021-05-22] MEDS: Aspirin Enteric Coated 81 MG Tablet PO SCH (09:05)
[2021-05-22] MEDS: Dexamethasone Sodium Phos/PF 10 MG/ML VIAL IVP SCH (09:05)
[2021-05-22] MEDS: Cholecalciferol (D-3) 1,000 UNIT (25MCG) TABLET PO SCH (09:05)
[2021-05-22] MEDS: lisinopriL 20 MG TABLET PO SCH (09:05)
[2021-05-22] MEDS: Insulin LISPRO 300 UNITS/3 ML VIAL SUBQ SCH ×4 (09:06→22:34)
[2021-05-22] MEDS: levoFLOXacin 750 MG/150 ML 750 MG/150 ML BAG IVPB SCH (09:06)
[2021-05-22] MEDS: carvediloL 25 MG TABLET PO SCH (09:08)
[2021-05-22 10:46] LABS: BUN/Creatinine Ratio 22 (6-26); Blood Urea Nitrogen 14 mg/dL (6-20); Calcium 8.8 mg/dL (8.6-10.3); Carbon Dioxide 20 mEq/L (23-29); Chloride 104 mEq/L (98-107); Glucose 228 mg/dL (70-105); Osmolality,Calculated 288 (280-300); Potassium 4.4 mEq/L (3.5-5.1); Sodium 135 mEq/L (136-145); eGFR For African Americans > 60 (> 60); eGFR For Non-African Americans > 60 (> 60)
[2021-05-22 11:27] LABS: C-Reactive Protein 199 mg/L (Less than 10)
[2021-05-22] MEDS: Acetaminophen 325 MG TABLET PO PRN ×2 (13:08→22:46)
[2021-05-22] MEDS: *HR* LORazepam 0.5 MG TABLET PO PRN ×2 (14:53→22:47)
[2021-05-22 15:46] LABS: Alanine Aminotransferase 26 Units/L (7-52); Albumin 3.4 g/dL (3.5-5.7); Albumin/Globulin Ratio 1.1 (1.1-2.2); Alkaline Phosphatase 49 Units/L (34-104); Aspartate Amino Transferase 46 Units/L (13-39); Bilirubin,Indirect 0.3 mg/dL (0.0-1.0); Bilirubin,Total 0.3 mg/dL (0.3-1.0); Globulin 3.1 g/dL (2.4-3.5); Total Protein 6.5 g/dL (6.4-8.9)
[2021-05-22] MEDS: *HR* Enoxaparin 40 MG/0.4 ML SYRINGE SQ SCH (17:07)
[2021-05-22] MEDS: *HR* HYDROcodone/Acet 5/325 mg TABLET PO PRN (23:37)
[2021-05-23] MEDS: Ipratropium 1 PUFF INHALER IH SCH ×4 (04:06→21:56)
[2021-05-23] MEDS: *HR* Enoxaparin 40 MG/0.4 ML SYRINGE SQ SCH ×2 (05:26→17:13)
[2021-05-23] MEDS: Remdesivir 100 MG in 0.9 % Sodium Chloride 100 ML IVPB SCH (05:28)
[2021-05-23 06:42] LABS: Basophils % 0.1 %; Hematocrit 36.9 % (37.5-50.1); Hemoglobin 11.8 g/dL (12.9-16.9); Immature Granulocytes % 0.8 % (0-4); Lymphocytes # 0.7 K/mcL (0.6-4.6); Lymphocytes % 6.4 %; Mean Corpuscular Volume 81.3 fL (83.0-100.0); Mean Platelet Volume 10.4 fL (9.4-12.4); Monocytes # 0.4 K/mcL (0.0-1.3); Neutrophils # 9.4 K/mcL (1.6-8.9); Platelet Count 346 K/mcL (140-400); Red Blood Count 4.54 M/mcL (4.19-5.50); Red Cell Distribution Width 15.1 % (11.5-14.5); Segmented Neutrophils % 88.7 %
[2021-05-23 06:45] LABS: White Blood Count 10.6 K/mcL (4.3-11.1)
[2021-05-23 07:23] LABS: Alanine Aminotransferase 23 Units/L (7-52); Albumin 3.3 g/dL (3.5-5.7); Albumin/Globulin Ratio 1.2 (1.1-2.2); Alkaline Phosphatase 50 Units/L (34-104); Aspartate Amino Transferase 29 Units/L (13-39); BUN/Creatinine Ratio 28 (6-26); Bilirubin,Indirect 0.3 mg/dL (0.0-1.0); Bilirubin,Total 0.3 mg/dL (0.3-1.0); Blood Urea Nitrogen 20 mg/dL (6-20); Carbon Dioxide 26 mEq/L (23-29); Chloride 105 mEq/L (98-107); Globulin 2.7 g/dL (2.4-3.5); Glucose 224 mg/dL (70-105); Osmolality,Calculated 296 (280-300); Potassium 4.4 mEq/L (3.5-5.1); Sodium 138 mEq/L (136-145); eGFR For African Americans > 60 (> 60); eGFR For Non-African Americans > 60 (> 60)
[2021-05-23] MEDS: Dexamethasone Sodium Phos/PF 10 MG/ML VIAL IVP SCH (08:39)
[2021-05-23] MEDS: carvediloL 25 MG TABLET PO SCH ×2 (08:39→17:13)
[2021-05-23] MEDS: Aspirin Enteric Coated 81 MG Tablet PO SCH (08:39)
[2021-05-23] MEDS: lisinopriL 20 MG TABLET PO SCH (08:39)
[2021-05-23] MEDS: Cholecalciferol (D-3) 1,000 UNIT (25MCG) TABLET PO SCH (08:39)
[2021-05-23] MEDS: levoFLOXacin 750 MG/150 ML 750 MG/150 ML BAG IVPB SCH (08:39)
[2021-05-23] MEDS: Insulin LISPRO 300 UNITS/3 ML VIAL SUBQ SCH ×4 (08:45→21:51)
[2021-05-23 12:01] LABS: Phosphorous 4.1 mg/dL (2.7-4.5)
[2021-05-23] MEDS: Benzonatate 100 MG CAPSULE PO PRN (12:02)
[2021-05-23] MEDS: Insulin DETEMIR 100 UNIT/ML X5UNITS SUBQ SCH (21:51)
[2021-05-23] MEDS: *HR* LORazepam 0.5 MG TABLET PO PRN (21:57)
[2021-05-23] MEDS: *HR* HYDROcodone/Acet 5/325 mg TABLET PO PRN (21:57)
[2021-05-24] MEDS: Ipratropium 1 PUFF INHALER IH SCH ×4 (04:22→21:06)
[2021-05-24] MEDS: *HR* Enoxaparin 40 MG/0.4 ML SYRINGE SQ SCH ×2 (05:30→16:28)
[2021-05-24] MEDS: Remdesivir 100 MG in 0.9 % Sodium Chloride 100 ML IVPB SCH (05:30)
[2021-05-24 06:36] LABS: Basophils % 0.1 %; Hematocrit 36.3 % (37.5-50.1); Hemoglobin 11.7 g/dL (12.9-16.9); Immature Granulocytes % 0.7 % (0-4); Lymphocytes # 0.7 K/mcL (0.6-4.6); Lymphocytes % 8.6 %; Mean Corpuscular HGB Conc 32.2 g/dL (31.6-35.5); Mean Corpuscular Hemoglobin 25.8 pg (28.0-33.3); Monocytes # 0.5 K/mcL (0.0-1.3); Monocytes % 6.1 %; Neutrophils # 7.1 K/mcL (1.6-8.9); Platelet Count 388 K/mcL (140-400); Red Blood Count 4.54 M/mcL (4.19-5.50); Red Cell Distribution Width 14.9 % (11.5-14.5); Segmented Neutrophils % 84.5 %; White Blood Count 8.4 K/mcL (4.3-11.1)
[2021-05-24 07:00] LABS: BUN/Creatinine Ratio 32 (6-26); Blood Urea Nitrogen 23 mg/dL (6-20); Calcium 9.1 mg/dL (8.6-10.3); Carbon Dioxide 28 mEq/L (23-29); Chloride 105 mEq/L (98-107); Glucose 217 mg/dL (70-105); Osmolality,Calculated 300 (280-300); Potassium 4.5 mEq/L (3.5-5.1); Sodium 140 mEq/L (136-145); eGFR For African Americans > 60 (> 60); eGFR For Non-African Americans > 60 (> 60)
[2021-05-24 07:01] LABS: Albumin 3.2 g/dL (3.5-5.7); Albumin/Globulin Ratio 1.2 (1.1-2.2); Bilirubin,Direct 0.1 mg/dL (0.0-0.2); Bilirubin,Indirect 0.2 mg/dL (0.0-1.0); Bilirubin,Total 0.3 mg/dL (0.3-1.0); Globulin 2.6 g/dL (2.4-3.5); Total Protein 5.8 g/dL (6.4-8.9)
[2021-05-24 07:23] LABS: Anisocytosis 1+ (Not Present); Platelet Estimate Normal (Normal)
[2021-05-24] MEDS: lisinopriL 20 MG TABLET PO SCH (09:43)
[2021-05-24] MEDS: carvediloL 25 MG TABLET PO SCH ×2 (09:43→16:28)
[2021-05-24] MEDS: Aspirin Enteric Coated 81 MG Tablet PO SCH (09:43)
[2021-05-24] MEDS: Dexamethasone Sodium Phos/PF 10 MG/ML VIAL IVP SCH (09:44)
[2021-05-24] MEDS: Cholecalciferol (D-3) 1,000 UNIT (25MCG) TABLET PO SCH (09:44)
[2021-05-24] MEDS: levoFLOXacin 750 MG/150 ML 750 MG/150 ML BAG IVPB SCH (09:44)
[2021-05-24] MEDS: Insulin LISPRO 300 UNITS/3 ML VIAL SUBQ SCH ×4 (09:48→20:48)
[2021-05-24] MEDS: Benzonatate 100 MG CAPSULE PO PRN ×2 (10:03→21:09)
[2021-05-24] MEDS ORDERED: Furosemide 20 MG/2 ML VIAL IVP ONE (11:09)
[2021-05-24] MEDS: Insulin DETEMIR 100 UNIT/ML X5UNITS SUBQ SCH (20:48)
[2021-05-24] MEDS: *HR* HYDROcodone/Acet 5/325 mg TABLET PO PRN (21:09)
[2021-05-24] MEDS: *HR* LORazepam 0.5 MG TABLET PO PRN (21:09)
[2021-05-25] MEDS: Ipratropium 1 PUFF INHALER IH SCH ×4 (05:03→21:59)
[2021-05-25] MEDS: Remdesivir 100 MG in 0.9 % Sodium Chloride 100 ML IVPB SCH (05:30)
[2021-05-25] MEDS: *HR* Enoxaparin 40 MG/0.4 ML SYRINGE SQ SCH ×2 (05:30→17:24)
[2021-05-25 05:58] LABS: Hematocrit 37.5 % (37.5-50.1); Hemoglobin 11.9 g/dL (12.9-16.9); Mean Corpuscular HGB Conc 31.7 g/dL (31.6-35.5); Mean Corpuscular Hemoglobin 25.4 pg (28.0-33.3); Mean Corpuscular Volume 80.1 fL (83.0-100.0); Mean Platelet Volume 9.9 fL (9.4-12.4); Platelet Count 413 K/mcL (140-400); Red Blood Count 4.68 M/mcL (4.19-5.50); Red Cell Distribution Width 14.8 % (11.5-14.5); White Blood Count 7.5 K/mcL (4.3-11.1)
[2021-05-25 06:20] LABS: BUN/Creatinine Ratio 35 (6-26); Blood Urea Nitrogen 24 mg/dL (6-20); Calcium 8.5 mg/dL (8.6-10.3); Carbon Dioxide 29 mEq/L (23-29); Chloride 103 mEq/L (98-107); Glucose 214 mg/dL (70-105); Osmolality,Calculated 298 (280-300); Potassium 4.5 mEq/L (3.5-5.1); Sodium 139 mEq/L (136-145); eGFR For African Americans > 60 (> 60); eGFR For Non-African Americans > 60 (> 60)
[2021-05-25 06:21] LABS: Albumin 3.2 g/dL (3.5-5.7); Albumin/Globulin Ratio 1.2 (1.1-2.2); Bilirubin,Direct 0.1 mg/dL (0.0-0.2); Bilirubin,Indirect 0.3 mg/dL (0.0-1.0); Bilirubin,Total 0.4 mg/dL (0.3-1.0); Globulin 2.6 g/dL (2.4-3.5); Total Protein 5.8 g/dL (6.4-8.9)
[2021-05-25 08:26] LABS: Lymphocytes # 0.6 K/mcL (0.6-4.6); Monocytes # 0.3 K/mcL (0.0-1.3); Neutrophils # 6.6 K/mcL (1.6-8.9)
[2021-05-25 08:27] LABS: Platelet Estimate Normal (Normal)
[2021-05-25] MEDS: levoFLOXacin 750 MG/150 ML 750 MG/150 ML BAG IVPB SCH (08:59)
[2021-05-25] MEDS: lisinopriL 20 MG TABLET PO SCH (09:03)
[2021-05-25] MEDS: Aspirin Enteric Coated 81 MG Tablet PO SCH (09:03)
[2021-05-25] MEDS: Cholecalciferol (D-3) 1,000 UNIT (25MCG) TABLET PO SCH (09:03)
[2021-05-25] MEDS: Dexamethasone Sodium Phos/PF 10 MG/ML VIAL IVP SCH (09:05)
[2021-05-25] MEDS: Insulin LISPRO 300 UNITS/3 ML VIAL SUBQ SCH ×4 (09:05→21:38)
[2021-05-25] MEDS: carvediloL 25 MG TABLET PO SCH ×3 (09:13→21:39)
[2021-05-25] MEDS ORDERED: Famotidine 20 MG/2 ML VIAL IVP ONE (09:34)
[2021-05-25] MEDS: *HR* LORazepam 0.5 MG TABLET PO PRN (21:36)
[2021-05-25] MEDS: Benzonatate 100 MG CAPSULE PO PRN (21:36)
[2021-05-25] MEDS: *HR* HYDROcodone/Acet 5/325 mg TABLET PO PRN (21:36)
[2021-05-25] MEDS: Famotidine 20 MG TABLET PO SCH (21:36)
[2021-05-25] MEDS: Insulin DETEMIR 100 UNIT/ML X5UNITS SUBQ SCH (21:38)
[2021-05-26 02:22] LABS: Basophils % 0.2 %; Hematocrit 38.2 % (37.5-50.1); Hemoglobin 12.3 g/dL (12.9-16.9); Immature Granulocytes % 1.5 % (0-4); Lymphocytes # 1.1 K/mcL (0.6-4.6); Lymphocytes % 12.6 %; Mean Corpuscular HGB Conc 32.2 g/dL (31.6-35.5); Mean Corpuscular Hemoglobin 25.8 pg (28.0-33.3); Mean Corpuscular Volume 80.1 fL (83.0-100.0); Mean Platelet Volume 10.1 fL (9.4-12.4); Monocytes # 0.6 K/mcL (0.0-1.3); Monocytes % 6.6 %; Platelet Count 370 K/mcL (140-400); Red Blood Count 4.77 M/mcL (4.19-5.50); Red Cell Distribution Width 14.7 % (11.5-14.5); Segmented Neutrophils % 79.1 %; White Blood Count 8.8 K/mcL (4.3-11.1)
[2021-05-26 02:36] LABS: BUN/Creatinine Ratio 34 (6-26); Blood Urea Nitrogen 23 mg/dL (6-20); Calcium 8.6 mg/dL (8.6-10.3); Carbon Dioxide 29 mEq/L (23-29); Chloride 103 mEq/L (98-107); Glucose 214 mg/dL (70-105); Osmolality,Calculated 296 (280-300); Potassium 4.7 mEq/L (3.5-5.1); Sodium 138 mEq/L (136-145); eGFR For African Americans > 60 (> 60); eGFR For Non-African Americans > 60 (> 60)
[2021-05-26 02:37] LABS: Albumin 3.3 g/dL (3.5-5.7); Albumin/Globulin Ratio 1.3 (1.1-2.2); Bilirubin,Direct 0.1 mg/dL (0.0-0.2); Bilirubin,Indirect 0.3 mg/dL (0.0-1.0); Bilirubin,Total 0.4 mg/dL (0.3-1.0); Globulin 2.6 g/dL (2.4-3.5); Total Protein 5.9 g/dL (6.4-8.9)
[2021-05-26] MEDS: Ipratropium 1 PUFF INHALER IH SCH ×4 (04:22→20:24)
[2021-05-26] MEDS: Remdesivir 100 MG in 0.9 % Sodium Chloride 100 ML IVPB SCH (05:49)
[2021-05-26] MEDS: *HR* Enoxaparin 40 MG/0.4 ML SYRINGE SQ SCH ×2 (05:50→16:43)
[2021-05-26] MEDS: Aspirin Enteric Coated 81 MG Tablet PO SCH (07:49)
[2021-05-26] MEDS: Famotidine 20 MG TABLET PO SCH ×2 (07:49→21:03)
[2021-05-26] MEDS: lisinopriL 20 MG TABLET PO SCH (07:49)
[2021-05-26] MEDS: Cholecalciferol (D-3) 1,000 UNIT (25MCG) TABLET PO SCH (07:49)
[2021-05-26] MEDS: carvediloL 25 MG TABLET PO SCH ×2 (07:50→16:45)
[2021-05-26] MEDS: Insulin LISPRO 300 UNITS/3 ML VIAL SUBQ SCH ×4 (07:51→21:05)
[2021-05-26] MEDS: Dexamethasone Sodium Phos/PF 10 MG/ML VIAL IVP SCH (07:52)
[2021-05-26] MEDS: Saline Nasal Spray 44 ML BOTTLE NS PRN (21:02)
[2021-05-26] MEDS: Insulin DETEMIR 100 UNIT/ML X5UNITS SUBQ SCH (21:04)
[2021-05-26] MEDS: *HR* HYDROcodone/Acet 5/325 mg TABLET PO PRN (21:14)
[2021-05-26] MEDS: Benzonatate 100 MG CAPSULE PO PRN (21:15)
[2021-05-26] MEDS: *HR* LORazepam 0.5 MG TABLET PO PRN (21:15)
[2021-05-27] MEDS: Ipratropium 1 PUFF INHALER IH SCH ×4 (03:41→20:56)
[2021-05-27] MEDS: *HR* Enoxaparin 40 MG/0.4 ML SYRINGE SQ SCH ×2 (05:06→17:16)
[2021-05-27] MEDS: Insulin LISPRO 300 UNITS/3 ML VIAL SUBQ SCH ×4 (08:00→21:16)
[2021-05-27] MEDS: Dexamethasone Sodium Phos/PF 10 MG/ML VIAL IVP SCH (10:44)
[2021-05-27] MEDS: lisinopriL 20 MG TABLET PO SCH (10:44)
[2021-05-27] MEDS: Famotidine 20 MG TABLET PO SCH ×2 (10:44→21:22)
[2021-05-27] MEDS: Aspirin Enteric Coated 81 MG Tablet PO SCH (10:44)
[2021-05-27] MEDS: Cholecalciferol (D-3) 1,000 UNIT (25MCG) TABLET PO SCH (10:44)
[2021-05-27] MEDS: *HR* HYDROcodone/Acet 5/325 mg TABLET PO PRN (21:21)
[2021-05-27] MEDS: Insulin DETEMIR 100 UNIT/ML X5UNITS SUBQ SCH (21:22)
[2021-05-28] MEDS: Ipratropium 1 PUFF INHALER IH SCH ×4 (03:47→20:21)
[2021-05-28] MEDS: *HR* Enoxaparin 40 MG/0.4 ML SYRINGE SQ SCH ×2 (05:15→17:00)
[2021-05-28 05:59] LABS: Mean Corpuscular HGB Conc 30.8 g/dL (31.6-35.5); Red Cell Distribution Width 14.7 % (11.5-14.5)
[2021-05-28 06:01] LABS: Basophils % 0.3 %; Eosinophils # 0.1 K/mcL (0.0-0.6); Eosinophils % 0.7 %; Hematocrit 39.6 % (37.5-50.1); Hemoglobin 12.2 g/dL (12.9-16.9); Immature Granulocytes % 1.8 % (0-4); Immature Platelets 6.5 % (1.1-6.1); Lymphocytes # 1.5 K/mcL (0.6-4.6); Lymphocytes % 20.3 %; Mean Corpuscular Hemoglobin 25.4 pg (28.0-33.3); Mean Corpuscular Volume 82.3 fL (83.0-100.0); Mean Platelet Volume 10.6 fL (9.4-12.4); Monocytes # 0.6 K/mcL (0.0-1.3); Monocytes % 7.3 %; Neutrophils # 5.3 K/mcL (1.6-8.9); Red Blood Count 4.81 M/mcL (4.19-5.50); Segmented Neutrophils % 69.6 %; White Blood Count 7.6 K/mcL (4.3-11.1)
[2021-05-28 06:16] LABS: BUN/Creatinine Ratio 30 (6-26); Blood Urea Nitrogen 21 mg/dL (6-20); Calcium 8.4 mg/dL (8.6-10.3); Carbon Dioxide 33 mEq/L (23-29); Chloride 103 mEq/L (98-107); Glucose 133 mg/dL (70-105); Osmolality,Calculated 295 (280-300); Potassium 4.1 mEq/L (3.5-5.1); Sodium 140 mEq/L (136-145); eGFR For African Americans > 60 (> 60); eGFR For Non-African Americans > 60 (> 60)
[2021-05-28] MEDS: Insulin LISPRO 300 UNITS/3 ML VIAL SUBQ SCH ×4 (09:29→20:12)
[2021-05-28] MEDS: Cholecalciferol (D-3) 1,000 UNIT (25MCG) TABLET PO SCH (09:33)
[2021-05-28] MEDS: Famotidine 20 MG TABLET PO SCH (09:33)
[2021-05-28] MEDS: Dexamethasone Sodium Phos/PF 10 MG/ML VIAL IVP SCH (09:33)
[2021-05-28] MEDS: lisinopriL 20 MG TABLET PO SCH (09:33)
[2021-05-28] MEDS: Aspirin Enteric Coated 81 MG Tablet PO SCH (09:33)
[2021-05-28] MEDS: Saline Nasal Spray 44 ML BOTTLE NS PRN (17:00)
[2021-05-28] MEDS: Insulin DETEMIR 100 UNIT/ML X5UNITS SUBQ SCH (20:11)
[2021-05-28] MEDS: *HR* HYDROcodone/Acet 5/325 mg TABLET PO PRN (22:16)
[2021-05-29] MEDS: Ipratropium 1 PUFF INHALER IH SCH ×2 (04:46→10:48)
[2021-05-29] MEDS: *HR* Enoxaparin 40 MG/0.4 ML SYRINGE SQ SCH (05:45)
[2021-05-29 07:39] VITALS: BP 133/92; PULSE 63; TEMP 97.6
[2021-05-29 07:48] LABS: Hemoglobin 11.9 g/dL (12.9-16.9); Immature Granulocytes % 1.6 % (0-4)
[2021-05-29 07:50] LABS: Basophils % 0.1 %; Eosinophils # 0.1 K/mcL (0.0-0.6); Hematocrit 37.4 % (37.5-50.1); Immature Platelets 6.6 % (1.1-6.1); Lymphocytes # 2.1 K/mcL (0.6-4.6); Lymphocytes % 28.9 %; Mean Corpuscular HGB Conc 31.8 g/dL (31.6-35.5); Mean Corpuscular Hemoglobin 26.7 pg (28.0-33.3); Mean Corpuscular Volume 83.9 fL (83.0-100.0); Mean Platelet Volume 10.2 fL (9.4-12.4); Monocytes # 0.7 K/mcL (0.0-1.3); Monocytes % 9.7 %; Neutrophils # 4.3 K/mcL (1.6-8.9); Platelet Count 297 K/mcL (140-400); Red Blood Count 4.46 M/mcL (4.19-5.50); Red Cell Distribution Width 15.1 % (11.5-14.5); Segmented Neutrophils % 58.7 %; White Blood Count 7.3 K/mcL (4.3-11.1)
[2021-05-29 08:11] LABS: BUN/Creatinine Ratio 28 (6-26); Blood Urea Nitrogen 21 mg/dL (6-20); Calcium 8.4 mg/dL (8.6-10.3); Carbon Dioxide 32 mEq/L (23-29); Chloride 105 mEq/L (98-107); Glucose 113 mg/dL (70-105); Osmolality,Calculated 296 (280-300); Sodium 141 mEq/L (136-145); eGFR For African Americans > 60 (> 60); eGFR For Non-African Americans > 60 (> 60)
[2021-05-29] MEDS ORDERED: Dexamethasone Sodium Phos/PF 10 MG/ML VIAL IVP SCH (09:00)
[2021-05-29] MEDS: Cholecalciferol (D-3) 1,000 UNIT (25MCG) TABLET PO SCH (10:37)
[2021-05-29] MEDS: Aspirin Enteric Coated 81 MG Tablet PO SCH (10:37)
[2021-05-29] MEDS: lisinopriL 20 MG TABLET PO SCH (10:37)
[2021-05-29] MEDS: Insulin LISPRO 300 UNITS/3 ML VIAL SUBQ SCH ×2 (10:41→13:39)
[2021-05-29 13:11] VITALS: O2SAT 93
== END 2021-05-29 14:07 | disposition home or self-care (01) | DRG 137 ==
LOC: 2NENU
PROVIDERS: ADMIT Student in an Organized Health Care Education/Training Program; ATTEND Student in an Organized Health Care Education/Training Program